=== PATIENT | female | born 1955 | race Caucasian/White ===

== ENCOUNTER 2017-05-20 07:29 | Day surgery (SDC) | payer OTHER ==
[~2017-05-20] VITALS: Ht 162.6 cm; Wt 133.7 kg
[~2017-05-20 07:29] MED LIST: ASPI-555 PO; CYCL10TA7 PO; GABA-531 PO; GLIP10TA9 PO; LEVO50TA11 PO; LOSA25TA21 PO; MAGN400C PO; METF10004 PO; MULT-264 PO; PANT40TA25 PO; PIOG30TA10 PO; SERT50TA12 PO; SIMV40TA5 PO; SODIUM CHLORIDE 0.9% 1000ML 1,000 ML IV ONE; VITA1CAP85 PO; VITAMIN C PO
[2017-05-20 09:10] VITALS: BP 144/75
[2017-05-20] MEDS ORDERED: HYDR-4068 PO (09:26)
[2017-05-20] MEDS ORDERED: PROPOFOL 10 MG/ML 20ML VIAL IV ONE ×2 (09:54→10:06)
[2017-05-20] MEDS ORDERED: FENTANYL CITRATE PF 50 MCG/1 ML 2ML VIAL ONE (10:00)
[2017-05-20 10:15] VITALS: BP 112/61
== END 2017-05-20 10:51 | disposition home or self-care (01) ==
LOC: ENDO 07:29 → DAH 07:29 → ENDO 10:51
PROVIDERS: ATTEND Internal Medicine Gastroenterology
DX: K57.30 Diverticulosis of large intestine without perforation or abscess without bleeding (principal); Z83.71 Family history of colonic polyps; Z68.43 Body mass index [BMI] 50.0-59.9, adult; Z79.899 Other long term (current) drug therapy; Z79.84 Long term (current) use of oral hypoglycemic drugs; Z79.4 Long term (current) use of insulin; E78.5 Hyperlipidemia, unspecified; M19.90 Unspecified osteoarthritis, unspecified site; K21.9 Gastro-esophageal reflux disease without esophagitis; G47.33 Obstructive sleep apnea (adult) (pediatric); J45.909 Unspecified asthma, uncomplicated; D64.9 Anemia, unspecified; E11.9 Type 2 diabetes mellitus without complications; E03.9 Hypothyroidism, unspecified; F32.9 Major depressive disorder, single episode, unspecified; Z90.49 Acquired absence of other specified parts of digestive tract; Z90.710 Acquired absence of both cervix and uterus; Z98.890 Other specified postprocedural states
CPT/HCPCS: 45378; 82948 ×2; A4606; J2704 ×2; J3010; J7030

== ENCOUNTER → 2018-06-02 | Outpatient (CLI) | payer OTHER ==
[~2018-06-02] MED LIST changes: +HYDR-4068 PO; -LOSA25TA21 PO; +LOSA25TA41 PO; +METF-446 PO; -METF10004 PO; -SODIUM CHLORIDE 0.9% 1000ML 1,000 ML IV ONE
== END | disposition home or self-care (01) ==
LOC: RAH 10:36
PROVIDERS: ATTEND Family Medicine
DX: Z12.31 Encounter for screening mammogram for malignant neoplasm of breast (principal)
CPT/HCPCS: 77067

== ENCOUNTER 2019-04-21 19:33 | Emergency (ER) | payer OTHER ==
[~2019-04-21 19:33] MED LIST changes: +SIMV-46 PO; -SIMV40TA5 PO
[2019-04-21] MEDS ORDERED: IPRATROPIUM/ALBUTEROL SULFATE 3 ML SOLUTION IH ONE ×3 (19:50)
[2019-04-21] MEDS ORDERED: DEXAMETHASONE SOD PHOSPHATE 10MG/ML 1ML VIAL ONE (20:04)
[2019-04-21 20:34] LABS: BASOPHILS % (AUTO) 0.7 % (0.0-5.0); EOSINOPHILS % (AUTO) 9.7 % (0.0-8.0); HEMATOCRIT 35.3 % (36-48); LYMPHOCYTES % (AUTO) 29.2 % (21.0-51.0); MEAN CORPUSCULAR HEMOGLOBIN 27.5 pg (27.0-33.0); MEAN CORPUSCULAR HGB CONC 31.4 g/dL (32.0-36.0); MEAN CORPUSCULAR VOLUME 87.6 fL (79-99); MONOCYTES % (AUTO) 6.2 % (3.0-13.0); NEUTROPHILS % (AUTO) 53.8 % (40.0-77.0); PLATELET COUNT (AUTO) 269 K/uL (130-400); RED BLOOD CELL COUNT(AUTO) 4.03 MIL/uL (4.00-5.50); RED CELL DISTRIBUTION WIDTH 14.8 % (11.0-15.5); WHITE BLOOD COUNT (AUTO) 10.5 K/uL (4.8-10.8)
[2019-04-21 20:40] LABS: CREATININE 0.9 mg/dL (0.5-1.5); POTASSIUM 3.7 mmol/L (3.5-5.1)
[2019-04-21 20:44] LABS: ALBUMIN 3.7 g/dL (3.5-5.0); BILIRUBIN,TOTAL 0.3 mg/dL (0.2-1.0); TOTAL PROTEIN, SERUM 7.7 g/dL (6.0-8.3)
[2019-04-21 20:54] LABS: B-TYPE NATRIURETIC PEPTIDE 24 pg/mL (0-100)
[2019-04-21 20:56] LABS: APPEARANCE,URINE Clear (CLEAR); BILIRUBIN,URINE Negative (NEGATIVE); COLOR,URINE Yellow (YELLOW); GLUCOSE, URINE (UA) Negative (NEGATIVE); KETONES,URINE Negative (NEGATIVE); LEUKOCYTE ESTERASE ,URINE Large (NEGATIVE); NITRATE,URINE Negative (NEGATIVE); OCCULT BLOOD,URINE Negative (NEGATIVE); PROTEIN,URINE Negative (NEGATIVE); UROBILINOGEN,URINE 0.2 mg/dL (0.2-1.0)
[2019-04-21 21:10] LABS: BACTERIA,URINE Rare /HPF (None Seen); RBC,URINE None Seen /HPF (0-1); SQUAMOUS EPITHELIAL CELL,UR Few /HPF (0-2)
== END 2019-04-21 22:00 | disposition home or self-care (01) ==
LOC: EDH 19:33
DX: B34.9 Viral infection, unspecified (principal); J45.909 Unspecified asthma, uncomplicated; E11.9 Type 2 diabetes mellitus without complications; Z88.5 Allergy status to narcotic agent; Z91.040 Latex allergy status; Z88.8 Allergy status to other drugs, medicaments and biological substances; Z88.1 Allergy status to other antibiotic agents
CPT/HCPCS: 36415; 71045; 80053; 81001; 83880; 84484; 85025; 93005; 94640 ×3; 96372; 99285; J1100

== ENCOUNTER 2019-09-25 22:25 | Inpatient (IN) | payer OTHER ==
[~2019-09-25] VITALS: Ht 162.6 cm; Wt 126.3 kg
[~2019-09-25 22:25] MED LIST changes: -ASPI-555 PO; +ASPI-556 PO
[2019-09-25] MEDS ORDERED: ACETAMINOPHEN 325 MG TAB ONE (22:48)
[2019-09-25] MEDS ORDERED: ONDANSETRON HCL 4 MG/2 ML VIAL ONE (22:48)
[2019-09-25] MEDS ORDERED: SODIUM CHLORIDE 0.9% 500ML 500 ML IV ONE (22:49)
[2019-09-25 23:23] LABS: BASOPHILS % (AUTO) 0.3 % (0.0-5.0); EOSINOPHILS % (AUTO) 0.1 % (0.0-8.0); HEMATOCRIT 31.3 % (36-48); LYMPHOCYTES % (AUTO) 7.3 % (21.0-51.0); MEAN CORPUSCULAR HEMOGLOBIN 26.8 pg (27.0-33.0); MEAN CORPUSCULAR HGB CONC 32.6 g/dL (32.0-36.0); MEAN CORPUSCULAR VOLUME 82.2 fL (79-99); MONOCYTES % (AUTO) 4.4 % (3.0-13.0); PLATELET COUNT (AUTO) 243 K/uL (130-400); RED BLOOD CELL COUNT(AUTO) 3.81 MIL/uL (4.00-5.50); RED CELL DISTRIBUTION WIDTH 14.6 % (11.0-15.5)
[2019-09-25 23:32] LABS: CARBON DIOXIDE 26 mmol/L (21-32); CHLORIDE 96 mmol/L (101-111); CREATININE 0.9 mg/dL (0.5-1.5); GLOMERULAR FILTR. RATE CALC 67 mL/min (>60); GLUCOSE,RANDOM 124 mg/dL (70-105); POTASSIUM 3.5 mmol/L (3.5-5.1); SODIUM SERUM 133 mmol/L (136-145); UREA NITROGEN, BLOOD 16 mg/dL (7-18)
[2019-09-25 23:37] LABS: INR 1.03 (0.85-1.15); PARTIAL THROMBOPLASTIN TIME 30.7 SEC (26.3-35.5); PROTHROMBIN TIME 11.1 SEC (9.6-11.6)
[2019-09-25 23:46] LABS: ALANINE AMINOTRANSFERASE 34 U/L (12-78); ALBUMIN 2.6 g/dL (3.5-5.0); ASPARTATE AMINOTRANSFERASE 57 U/L (10-37); BILIRUBIN,TOTAL 0.3 mg/dL (0.2-1.0); CREATINE KINASE, TOTAL 193 U/L (21-232); MYOGLOBIN 130 ng/mL (10-92); TOTAL PROTEIN, SERUM 7.2 g/dL (6.0-8.3); TROPONIN I < 0.04 ng/mL (0.00-0.06)
[2019-09-26] MEDS ORDERED: FUROSEMIDE 10 MG/ML 4ML VIAL ONE (00:33)
[2019-09-26] MEDS ORDERED: METHYLPREDNISOLONE SOD SUCC 40MG/ML 1ML ONE ×3 (00:55→17:01)
[2019-09-26] MEDS ORDERED: ENOXAPARIN SODIUM 40 MG/0.4 ML SYRINGE SQ ONE (00:56)
[2019-09-26] MEDS ORDERED: AZITHROMYCIN 500MG+NS 250ML 250 ML IV ONE (00:56)
[2019-09-26] MEDS ORDERED: FUROSEMIDE 10 MG/ML 4ML VIAL IVP SCH (01:00)
[2019-09-26] MEDS ORDERED: METHYLPREDNISOLONE SOD SUCC 40MG/ML 1ML IVP SCH (01:00)
[2019-09-26 01:30] LABS: RAPID GROUP A STREP NEGATIVE (NEGATIVE)
[2019-09-26 05:34] LABS: BASOPHILS % (AUTO) 0.2 % (0.0-5.0); HEMATOCRIT 32.5 % (36-48); LYMPHOCYTES % (AUTO) 8.9 % (21.0-51.0); MEAN CORPUSCULAR HEMOGLOBIN 26.7 pg (27.0-33.0); MEAN CORPUSCULAR HGB CONC 32.3 g/dL (32.0-36.0); MEAN CORPUSCULAR VOLUME 82.7 fL (79-99); MONOCYTES % (AUTO) 3.1 % (3.0-13.0); NEUTROPHILS % (AUTO) 86.8 % (40.0-77.0); PLATELET COUNT (AUTO) 257 K/uL (130-400); RED BLOOD CELL COUNT(AUTO) 3.93 MIL/uL (4.00-5.50); RED CELL DISTRIBUTION WIDTH 14.6 % (11.0-15.5); WHITE BLOOD COUNT (AUTO) 8.2 K/uL (4.8-10.8)
[2019-09-26 05:49] LABS: CREATININE 1.1 mg/dL (0.5-1.5); POTASSIUM 3.9 mmol/L (3.5-5.1)
[2019-09-26] MEDS: HUMALOG PO SS2 SQ SCH ×4 (07:30→21:00)
[2019-09-26 08:32] LABS: ABG BASE EXCESS -0.7 mmol/L (-2.0-3.0); ABG HCO3 23.2 mmol/L (21.0-28.0); ABG OXYGEN SATURATION 90.2 % (95.0-99.0); ABG PCO2 36 mmHg (32-45)
[2019-09-26] MEDS ORDERED: INSULIN HUMULIN R 100 UNIT/ML 3ML ONE (09:42)
[2019-09-26] MEDS: FUROSEMIDE 10 MG/ML 2ML VIAL IV SCH (10:15)
[2019-09-26] MEDS: CYCLOBENZAPRINE HCL 10 MG TABLET PO SCH (10:20)
[2019-09-26] MEDS ORDERED: ERGOCALCIFEROL (VITAMIN D2) 50,000 UNIT CAPSULE PO ONE (17:30)
[2019-09-26 17:49] LABS: APPEARANCE,URINE Clear (CLEAR); BILIRUBIN,URINE Negative (NEGATIVE); COLOR,URINE Yellow (YELLOW); GLUCOSE, URINE (UA) >=1000 mg/dL (NEGATIVE); KETONES,URINE Negative (NEGATIVE); LEUKOCYTE ESTERASE ,URINE Moderate (NEGATIVE); NITRATE,URINE Negative (NEGATIVE); OCCULT BLOOD,URINE Negative (NEGATIVE); PROTEIN,URINE Trace mg/dL (NEGATIVE)
[2019-09-26 18:07] LABS: BACTERIA,URINE Moderate /HPF (None Seen); MUCUS,URINE Few LPF (None Seen); SQUAMOUS EPITHELIAL CELL,UR Few /HPF (0-2)
[2019-09-26] MEDS ORDERED: HYDROCODONE/ACETAMINOPHEN 5/325 MG TAB ONE (19:30)
[2019-09-26] MEDS ORDERED: AZITHROMYCIN 500MG+NS 250ML 250 ML IV SCH (21:00)
[2019-09-26] MEDS: ENOXAPARIN SODIUM 1 MG/KG SQ SCH (21:00)
[2019-09-26] MEDS: SIMVASTATIN 20 MG TABLET PO SCH (21:00)
[2019-09-26] MEDS ORDERED: ENOXAPARIN SODIUM 40 MG/0.4 ML SYRINGE SQ SCH (21:00)
[2019-09-26] MEDS: INSULIN GLARGINE 100 UNITS/ML 10 ML VIAL SQ SCH (21:00)
[2019-09-27] MEDS ORDERED: SIMVASTATIN 10 MG TABLET ONE ×2 (00:12→22:59)
[2019-09-27] MEDS ORDERED: ENOXAPARIN SODIUM 100 MG/1 ML SQ ONE ×2 (00:12→22:59)
[2019-09-27] MEDS ORDERED: MAGNESIUM OXIDE 400 MG TABLET PO ONE ×4 (00:12→23:00)
[2019-09-27] MEDS ORDERED: METHYLPREDNISOLONE SOD SUCC 40MG/ML 1ML ONE (00:12)
[2019-09-27] MEDS ORDERED: FUROSEMIDE 10 MG/ML 4ML VIAL ONE ×2 (00:13→16:36)
[2019-09-27] MEDS ORDERED: AZITHROMYCIN 500MG+NS 250ML 250 ML IV ONE (00:13)
[2019-09-27] MEDS ORDERED: CYCLOBENZAPRINE HCL 10 MG TABLET ONE ×3 (00:13→23:01)
[2019-09-27] MEDS ORDERED: GABAPENTIN 300 MG CAPSULE ONE ×4 (00:14→23:01)
[2019-09-27 04:09] LABS: ABG BASE EXCESS -1.7 mmol/L (-2.0-3.0); ABG HCO3 22.3 mmol/L (21.0-28.0); ABG OXYGEN SATURATION 92.7 % (95.0-99.0); ABG PCO2 36 mmHg (32-45)
[2019-09-27 05:52] LABS: BASOPHILS % (AUTO) 0.1 % (0.0-5.0); HEMATOCRIT 35.8 % (36-48); LYMPHOCYTES % (AUTO) 5.8 % (21.0-51.0); MEAN CORPUSCULAR HEMOGLOBIN 26.8 pg (27.0-33.0); MEAN CORPUSCULAR HGB CONC 32.1 g/dL (32.0-36.0); MEAN CORPUSCULAR VOLUME 83.4 fL (79-99); MONOCYTES % (AUTO) 2.8 % (3.0-13.0); NEUTROPHILS % (AUTO) 90.6 % (40.0-77.0); PLATELET COUNT (AUTO) 349 K/uL (130-400); RED BLOOD CELL COUNT(AUTO) 4.29 MIL/uL (4.00-5.50); RED CELL DISTRIBUTION WIDTH 14.5 % (11.0-15.5); WHITE BLOOD COUNT (AUTO) 13.3 K/uL (4.8-10.8)
[2019-09-27 06:14] LABS: HEMOGLOBIN A1C 6.5 % (4.0-6.0)
[2019-09-27] MEDS: HUMALOG PO SS2 SQ SCH ×4 (07:30→21:00)
[2019-09-27 08:50] LABS: CREATININE 1.2 mg/dL (0.5-1.5); MAGNESIUM 2.1 mg/dL (1.80-2.40); PHOSPHORUS 3.7 mg/dL (2.5-4.9); POTASSIUM 3.8 mmol/L (3.5-5.1)
[2019-09-27 08:59] LABS: CRP QUANTITATIVE 164.4 mg/L (0.00-9.0)
[2019-09-27 09:00] VITALS: BP 140/36
[2019-09-27] MEDS: ZINC SULFATE 220 CAPSULE PO SCH (09:00)
[2019-09-27] MEDS: ENOXAPARIN SODIUM 1 MG/KG SQ SCH ×2 (09:00→21:00)
[2019-09-27] MEDS: SERTRALINE HCL 50 MG TABLET PO SCH (09:00)
[2019-09-27] MEDS: ASPIRIN 81 MG EC TAB PO SCH (09:00)
[2019-09-27] MEDS: LEVOTHYROXINE 50 MCG TABLET PO SCH (09:00)
[2019-09-27] MEDS: MAGNESIUM OXIDE 400 MG TABLET PO SCH ×3 (09:00→14:00)
[2019-09-27] MEDS: ASCORBIC ACID 500 MG TAB PO SCH (09:00)
[2019-09-27] MEDS: GABAPENTIN 300 MG CAPSULE PO SCH ×3 (09:00→14:00)
[2019-09-27] MEDS: LOSARTAN 50 MG TABLET PO SCH (09:00)
[2019-09-27] MEDS ORDERED: ASPIRIN 81MG TAB.CHEW ONE (09:32)
[2019-09-27] MEDS ORDERED: DEXAMETHASONE SOD PHOSPHATE 10MG/ML 1ML VIAL ONE (09:33)
[2019-09-27] MEDS ORDERED: ASCORBIC ACID 500 MG TAB ONE (09:33)
[2019-09-27] MEDS ORDERED: SERTRALINE HCL 50 MG TABLET ONE (09:34)
[2019-09-27] MEDS ORDERED: FUROSEMIDE 10 MG/ML 2ML VIAL ONE (09:34)
[2019-09-27] MEDS ORDERED: PANTOPRAZOLE SODIUM 40 MG TABLET.DR ONE (09:34)
[2019-09-27] MEDS ORDERED: ZINC SULFATE 220 CAPSULE ONE (09:34)
[2019-09-27] MEDS ORDERED: LOSARTAN 50 MG TABLET ONE (09:35)
[2019-09-27] MEDS: FUROSEMIDE 10 MG/ML 2ML VIAL IV SCH ×3 (10:00→10:20)
[2019-09-27] MEDS: CYCLOBENZAPRINE HCL 10 MG TABLET PO SCH ×2 (10:00→21:00)
[2019-09-27] MEDS: MULTIVITAMIN TABLET PO SCH (10:20)
[2019-09-27] MEDS: PANTOPRAZOLE SODIUM 40 MG TABLET.DR PO SCH (10:20)
[2019-09-27] MEDS: DEXAMETHASONE SOD PHOSPHATE 4 MG/ML 1ML VIAL IVP SCH (10:20)
[2019-09-27 12:30] VITALS: BP 130/73
[2019-09-27] MEDS ORDERED: ENOXAPARIN SODIUM 40 MG/0.4 ML SYRINGE SQ ONE ×2 (13:08→23:00)
[2019-09-27] MEDS ORDERED: TETANUS/DIPHTHERIA TOXOID [ADULT] 0.5 ML VIAL IM ONE (15:36)
[2019-09-27 16:09] VITALS: BP 127/73
[2019-09-27] MEDS ORDERED: CYANOCOBALAMIN (VITAMIN B-12) 1,000 MCG TABLET ONE (16:36)
--- NOTE | 2019-09-27 16:38 | NUR ---
[id number] RECEIVED TELEPHONE CONSENT FROM SPOUSE AGATA CORONADO AT [phone]. I FAXED LETTER TO [phone].
[2019-09-27] MEDS: SIMVASTATIN 20 MG TABLET PO SCH (21:00)
[2019-09-27] MEDS: INSULIN GLARGINE 100 UNITS/ML 10 ML VIAL SQ SCH (21:00)
[2019-09-28] MEDS ORDERED: FUROSEMIDE 10 MG/ML 4ML VIAL ONE ×2 (01:08→09:28)
[2019-09-28 04:01] LABS: ABG BASE EXCESS 3.1 mmol/L (-2.0-3.0); ABG OXYGEN SATURATION 91.1 % (95.0-99.0); ABG PCO2 39 mmHg (32-45)
[2019-09-28 06:09] LABS: BASOPHILS % (AUTO) 0.1 % (0.0-5.0); EOSINOPHILS % (AUTO) 0.1 % (0.0-8.0); HEMATOCRIT 31.9 % (36-48); MEAN CORPUSCULAR HEMOGLOBIN 26.7 pg (27.0-33.0); MEAN CORPUSCULAR HGB CONC 32.6 g/dL (32.0-36.0); MEAN CORPUSCULAR VOLUME 81.8 fL (79-99); MONOCYTES % (AUTO) 3.9 % (3.0-13.0); NEUTROPHILS % (AUTO) 87.5 % (40.0-77.0); NUCLEATED RED BLOOD CELLS 0.1 % (0.0-0.19); PLATELET COUNT (AUTO) 362 K/uL (130-400); RED CELL DISTRIBUTION WIDTH 14.6 % (11.0-15.5); WHITE BLOOD COUNT (AUTO) 13.6 K/uL (4.8-10.8)
[2019-09-28 06:49] LABS: ALBUMIN 2.8 g/dL (3.5-5.0); BILIRUBIN,DIRECT 0.1 mg/dL (0.0-0.3); BILIRUBIN,TOTAL 0.3 mg/dL (0.2-1.0); CREATININE 1.1 mg/dL (0.5-1.5); CRP QUANTITATIVE 78.1 mg/L (0.00-9.0); PHOSPHORUS 2.8 mg/dL (2.5-4.9); POTASSIUM 3.4 mmol/L (3.5-5.1); TOTAL PROTEIN, SERUM 7.4 g/dL (6.0-8.3)
[2019-09-28] MEDS: HUMALOG PO SS2 SQ SCH ×4 (07:30→21:00)
[2019-09-28 08:09] VITALS: BP 120/68
--- NOTE | 2019-09-28 08:10 | NUR ---
SOB ON EXCERTION, ON BIPAP, QUICKLY DESATURATES WHEN BIPAP REMOVED, WILL CONTINUE TO ASSESS
[2019-09-28] MEDS: FUROSEMIDE 10 MG/ML 2ML VIAL IV SCH ×3 (08:15→16:15)
[2019-09-28] MEDS: GABAPENTIN 300 MG CAPSULE PO SCH ×3 (09:00→21:00)
[2019-09-28] MEDS: CYCLOBENZAPRINE HCL 10 MG TABLET PO SCH ×4 (09:00→21:00)
[2019-09-28] MEDS: ENOXAPARIN SODIUM 1 MG/KG SQ SCH ×2 (09:00→21:00)
[2019-09-28] MEDS: MAGNESIUM OXIDE 400 MG TABLET PO SCH ×4 (09:00→21:00)
[2019-09-28] MEDS ORDERED: ENOXAPARIN SODIUM 60 MG/0.6 ML SQ ONE (09:26)
[2019-09-28] MEDS ORDERED: ASCORBIC ACID 500 MG TAB ONE (09:27)
[2019-09-28] MEDS ORDERED: ASPIRIN 81MG TAB.CHEW ONE (09:27)
[2019-09-28] MEDS ORDERED: DEXAMETHASONE SOD PHOSPHATE 4 MG/ML 5ML VIAL ONE (09:28)
[2019-09-28] MEDS ORDERED: MAGNESIUM OXIDE 400 MG TABLET PO ONE ×3 (09:28→21:16)
[2019-09-28] MEDS ORDERED: ZINC SULFATE 220 CAPSULE ONE (09:29)
[2019-09-28] MEDS ORDERED: PANTOPRAZOLE SODIUM 40 MG TABLET.DR ONE (09:29)
[2019-09-28] MEDS ORDERED: CYCLOBENZAPRINE HCL 10 MG TABLET ONE ×3 (09:30→21:17)
[2019-09-28] MEDS ORDERED: LOSARTAN 50 MG TABLET ONE (09:30)
[2019-09-28] MEDS ORDERED: SERTRALINE HCL 50 MG TABLET ONE (09:30)
[2019-09-28] MEDS ORDERED: GABAPENTIN 300 MG CAPSULE ONE ×3 (09:31→21:17)
[2019-09-28] MEDS: DEXAMETHASONE SOD PHOSPHATE 4 MG/ML 1ML VIAL IVP SCH (10:27)
[2019-09-28] MEDS: LEVOTHYROXINE 50 MCG TABLET PO SCH (10:28)
[2019-09-28] MEDS: ASCORBIC ACID 500 MG TAB PO SCH (10:28)
[2019-09-28] MEDS: MULTIVITAMIN TABLET PO SCH (10:28)
[2019-09-28] MEDS: LOSARTAN 50 MG TABLET PO SCH (10:28)
[2019-09-28] MEDS: ASPIRIN 81 MG EC TAB PO SCH (10:28)
[2019-09-28] MEDS: SERTRALINE HCL 50 MG TABLET PO SCH (10:28)
[2019-09-28] MEDS: PANTOPRAZOLE SODIUM 40 MG TABLET.DR PO SCH (10:28)
[2019-09-28] MEDS: ZINC SULFATE 220 CAPSULE PO SCH (10:28)
[2019-09-28 12:05] VITALS: BP 118/70
--- NOTE | 2019-09-28 12:06 | NUR ---
FIO2 OF 60 AND PT OS SAT IS 87%. CALLED RESPIRATORY AND ADJUSTED BIPAP. FIO2 AT 80% AND SATURATION IMPROVED. PT STATES SHE IS HAVING MORE DIFFICULTY BREATHING TODAY. PAGED BENCHMARK C/O BURNING IN HER CHEST. WILL CONTINUE TO ASSES AND UPDATE MD.
--- NOTE | 2019-09-28 12:33 | NUR ---
CALL TO SPOUSE FOR DC PLANNING STATES PATIENT DOES NOT HAVE HER PHONE- INSTRUCTED HOW TO MAKE SURE ITS DROPPED OFF SAFELY, IDENTIFIED, WITH AUTOMOTIVE BRAKE ADJUSTER. SPOUSE STATES PATIENT IS INDEPENDENT & ACTIVE- HAS A BACK IMPLANT FOR PAIN BUT REQUIRES NO DME INC NO S/CHAIR, HOME HAS NO STAIRS, PT DRIVES, FOLLOWS WITH DR. TREVINO Q 3 MOS DCP HOME , SPOUSE TO TRANSPORT. CM TO FOLLOW . PT STILL WITH ++ OXYGEN REQUIREMENTS Addendum: 09/28/19 at 1238 by KEYON LANDA RN CM Amended: Links added.
[2019-09-28 13:40] VITALS: BP 129/67
[2019-09-28] MEDS ORDERED: FUROSEMIDE 10 MG/ML 2ML VIAL ONE ×2 (15:39→15:46)
[2019-09-28 16:04] VITALS: BP 116/71
[2019-09-28] MEDS: INSULIN GLARGINE 100 UNITS/ML 10 ML VIAL SQ SCH (21:00)
[2019-09-28] MEDS: SIMVASTATIN 20 MG TABLET PO SCH (21:00)
[2019-09-28] MEDS ORDERED: SIMVASTATIN 10 MG TABLET ONE (21:16)
[2019-09-28] MEDS ORDERED: ENOXAPARIN SODIUM 100 MG/1 ML SQ ONE (21:46)
[2019-09-29] MEDS: FUROSEMIDE 10 MG/ML 2ML VIAL IV SCH ×3 (00:15→17:57)
[2019-09-29 00:30] VITALS: BP 132/96
[2019-09-29 04:03] LABS: ABG BASE EXCESS 4.9 mmol/L (-2.0-3.0); ABG HCO3 28.8 mmol/L (21.0-28.0); ABG PCO2 40 mmHg (32-45)
[2019-09-29 04:20] VITALS: BP 139/64
[2019-09-29] MEDS: HUMALOG PO SS2 SQ SCH ×4 (06:20→21:00)
[2019-09-29 06:30] LABS: BASOPHILS % (AUTO) 0.3 % (0.0-5.0); EOSINOPHILS % (AUTO) 0.2 % (0.0-8.0); HEMATOCRIT 33.3 % (36-48); MEAN CORPUSCULAR HEMOGLOBIN 26.2 pg (27.0-33.0); MEAN CORPUSCULAR HGB CONC 31.5 g/dL (32.0-36.0); MONOCYTES % (AUTO) 2.7 % (3.0-13.0); NEUTROPHILS % (AUTO) 85.4 % (40.0-77.0); NUCLEATED RED BLOOD CELLS 0.3 % (0.0-0.19); PLATELET COUNT (AUTO) 385 K/uL (130-400); RED BLOOD CELL COUNT(AUTO) 4.01 MIL/uL (4.00-5.50); RED CELL DISTRIBUTION WIDTH 14.4 % (11.0-15.5); WHITE BLOOD COUNT (AUTO) 11.7 K/uL (4.8-10.8)
[2019-09-29 06:56] LABS: ALBUMIN 2.7 g/dL (3.5-5.0); BILIRUBIN,TOTAL 0.6 mg/dL (0.2-1.0); CREATININE 0.9 mg/dL (0.5-1.5); PHOSPHORUS 3.1 mg/dL (2.5-4.9); POTASSIUM 3.5 mmol/L (3.5-5.1); TOTAL PROTEIN, SERUM 7.6 g/dL (6.0-8.3)
[2019-09-29 08:00] VITALS: BP 134/63
[2019-09-29] MEDS: DEXAMETHASONE SOD PHOSPHATE 4 MG/ML 1ML VIAL IVP SCH (08:31)
[2019-09-29] MEDS: SERTRALINE HCL 50 MG TABLET PO SCH (08:32)
[2019-09-29] MEDS: CYCLOBENZAPRINE HCL 10 MG TABLET PO SCH ×3 (08:32→22:00)
[2019-09-29] MEDS: ASPIRIN 81 MG EC TAB PO SCH (08:33)
[2019-09-29] MEDS: ASCORBIC ACID 500 MG TAB PO SCH (08:33)
[2019-09-29] MEDS: MAGNESIUM OXIDE 400 MG TABLET PO SCH ×3 (08:33→22:00)
[2019-09-29] MEDS: GABAPENTIN 300 MG CAPSULE PO SCH ×3 (08:34→22:00)
[2019-09-29] MEDS: MULTIVITAMIN TABLET PO SCH (08:34)
[2019-09-29] MEDS: PANTOPRAZOLE SODIUM 40 MG TABLET.DR PO SCH (08:34)
[2019-09-29] MEDS: LEVOTHYROXINE 50 MCG TABLET PO SCH (08:34)
[2019-09-29] MEDS: ZINC SULFATE 220 CAPSULE PO SCH (08:35)
[2019-09-29] MEDS: LOSARTAN 50 MG TABLET PO SCH (08:35)
[2019-09-29] MEDS: ENOXAPARIN SODIUM 1 MG/KG SQ SCH ×2 (09:00→21:00)
[2019-09-29] MEDS: INSULIN HUMULIN R 100 UNIT/ML 3ML SQ SCH ×3 (11:41→21:00)
[2019-09-29 12:00] VITALS: BP 116/75
[2019-09-29] MEDS ORDERED: REMDESIVIR (INVESTIGATIONAL) 200 MG in SODIUM CHLORIDE 0.9% 250 ML IV ONE ×2 (12:15→12:30)
--- NOTE | 2019-09-29 13:00 | NUR ---
PLASMA TRANSFUSION NOW COMPLETE, NO ADVERSE REACTION NOTED
[2019-09-29] MEDS: PHARMACY COMMUNICATION MISC SCH ×2 (13:45→21:38)
[2019-09-29 16:00] VITALS: BP 118/81
[2019-09-29 20:24] VITALS: BP 127/64
[2019-09-29] MEDS: INSULIN GLARGINE 100 UNITS/ML 10 ML VIAL SQ SCH (21:00)
[2019-09-29] MEDS: FAMOTIDINE 20MG TAB 20 MG TAB PO SCH (22:05)
[2019-09-29] MEDS: SIMVASTATIN 20 MG TABLET PO SCH (22:06)
[2019-09-30 00:24] VITALS: BP 135/73
[2019-09-30] MEDS: PHARMACY COMMUNICATION MISC SCH ×3 (02:03→20:04)
[2019-09-30] MEDS: FUROSEMIDE 10 MG/ML 2ML VIAL IV SCH ×3 (02:11→16:15)
[2019-09-30 04:24] VITALS: BP 139/73
[2019-09-30] MEDS: INSULIN HUMULIN R 100 UNIT/ML 3ML SQ SCH ×4 (06:17→22:25)
[2019-09-30] MEDS: HUMALOG PO SS2 SQ SCH ×4 (06:17→22:24)
[2019-09-30 07:01] LABS: ABG BASE EXCESS 7.4 mmol/L (-2.0-3.0); ABG HCO3 30.4 mmol/L (21.0-28.0); ABG OXYGEN SATURATION 76.5 % (95.0-99.0); ABG PCO2 37 mmHg (32-45)
[2019-09-30] MEDS ORDERED: LORAZEPAM 2 MG/ML 1 ML VIAL IVP SCH (07:30)
[2019-09-30] MEDS: LORAZEPAM 2 MG/ML 1 ML VIAL ONE ×3 (07:31→07:49)
--- NOTE | 2019-09-30 07:49 | NUR ---
0645 - andre called for pt; O2 sats with BiPAP were in the mid 70s and sustaining; RT present and changed out pts Bipap machine; Dr. Billings called and informed of pts condition; anti-anxiety medication ordered (Ativan 1mg IV); pt received 0.25mg Ativan and O2 sats eventually increased to 90%; pt is currently resting in bed with Bipap (rate 16 and O2 100%); pts O2 sats = 94%; no distress noted. Nadiya, RN
--- NOTE | 2019-09-30 09:00 | NUR ---
HAVING QUITE A BIT OF COUGHING, SATS DROPPING TO 70S, KEEPS TAKING OFF MASK, STATES FEELS LIKE SHE IS SUFFOCATING.
[2019-09-30] MEDS: ASCORBIC ACID 500 MG TAB PO SCH (10:33)
[2019-09-30] MEDS: DEXAMETHASONE SOD PHOSPHATE 4 MG/ML 1ML VIAL IVP SCH (10:33)
[2019-09-30] MEDS: FAMOTIDINE 20MG TAB 20 MG TAB PO SCH ×2 (10:34→21:34)
[2019-09-30] MEDS: ASPIRIN 81 MG EC TAB PO SCH (10:34)
[2019-09-30] MEDS: SERTRALINE HCL 50 MG TABLET PO SCH (10:34)
[2019-09-30] MEDS: MULTIVITAMIN TABLET PO SCH (10:34)
[2019-09-30] MEDS: LOSARTAN 50 MG TABLET PO SCH (10:35)
[2019-09-30] MEDS: ZINC SULFATE 220 CAPSULE PO SCH (10:35)
[2019-09-30] MEDS: LEVOTHYROXINE 50 MCG TABLET PO SCH (10:35)
[2019-09-30] MEDS: MAGNESIUM OXIDE 400 MG TABLET PO SCH ×3 (10:45→21:33)
[2019-09-30] MEDS: GABAPENTIN 300 MG CAPSULE PO SCH ×3 (10:46→21:34)
[2019-09-30] MEDS: CYCLOBENZAPRINE HCL 10 MG TABLET PO SCH ×3 (10:47→21:33)
[2019-09-30 12:00] VITALS: BP 131/79
[2019-09-30] MEDS ORDERED: REMDESIVIR (INVESTIGATIONAL) 100 MG in SODIUM CHLORIDE 0.9% 250 ML IV SCH (12:15)
[2019-09-30] MEDS ORDERED: CEFTRIAXONE SODIUM 1 GM IV SCH (13:00)
[2019-09-30] MEDS: ZOSYN 3.375GM+NS 50ML 50 ML IV SCH ×2 (14:03→21:00)
[2019-09-30] MEDS ORDERED: PHARMACY COMMUNICATION MISC STA (14:44)
[2019-09-30] MEDS ORDERED: FUROSEMIDE 10 MG/ML 2ML VIAL IV STA (15:02)
[2019-09-30] MEDS: ENOXAPARIN SODIUM 120 MG/0.8ML SQ SCH (15:09)
[2019-09-30] MEDS: LOPERAMIDE 1 MG/7.5 ML UDCUP PO SCH (15:10)
--- NOTE | 2019-09-30 15:51 | NUR ---
new iv start, 20g to rt. hand.
[2019-09-30 16:00] VITALS: BP 132/82
[2019-09-30] MEDS ORDERED: REMDESIVIR (EUA) 520 100 MG VIAL IV ONE (16:00)
[2019-09-30] MEDS ORDERED: REMDESIVIR 200 MG in SODIUM CHLORIDE 0.9% 250 ML IV ONE (16:00)
--- NOTE | 2019-09-30 18:00 | NUR ---
SEEMS MORE SETTLED NOW. RESTING AND SATS BETWEEN 90TO 92
[2019-09-30 19:05] VITALS: BP 121/70
[2019-09-30] MEDS ORDERED: LIDOCAINE HCL-MPF 1% 2ML VIAL IV PRN (19:30)
[2019-09-30] MEDS ORDERED: POTASSIUM CHLORIDE 10% ELIXIR 20 MEQ/15 ML UDCUP PO PRN (19:30)
[2019-09-30] MEDS ORDERED: POTASSIUM CHLORIDE 20MEQ/100ML 100 ML IV PRN (19:30)
[2019-09-30] MEDS: SIMVASTATIN 20 MG TABLET PO SCH (21:34)
[2019-09-30] MEDS: INSULIN GLARGINE 100 UNITS/ML 10 ML VIAL SQ SCH (22:26)
[2019-09-30] MEDS: POTASSIUM CHLORIDE 20 MEQ ERTAB PO PRN (22:29)
[2019-09-30 23:33] VITALS: BP 115/60
[2019-10-01] MEDS: FUROSEMIDE 10 MG/ML 2ML VIAL IV SCH ×3 (01:06→17:06)
[2019-10-01] MEDS: PHARMACY COMMUNICATION MISC SCH ×4 (01:07→20:51)
[2019-10-01] MEDS: ENOXAPARIN SODIUM 120 MG/0.8ML SQ SCH ×2 (02:45→15:05)
[2019-10-01 03:10] VITALS: BP 105/59
[2019-10-01] MEDS: POTASSIUM CHLORIDE 20 MEQ ERTAB PO PRN ×2 (03:15→17:06)
[2019-10-01] MEDS: ZOSYN 3.375GM+NS 50ML 50 ML IV SCH ×3 (05:00→22:03)
[2019-10-01 05:02] LABS: CREATININE 1.1 mg/dL (0.5-1.5); POTASSIUM 3.3 mmol/L (3.5-5.1)
[2019-10-01] MEDS: INSULIN HUMULIN R 100 UNIT/ML 3ML SQ SCH ×4 (06:16→22:27)
[2019-10-01] MEDS: HUMALOG PO SS2 SQ SCH ×4 (06:42→22:25)
[2019-10-01 08:00] VITALS: BP 130/74
[2019-10-01] MEDS: LEVOTHYROXINE 50 MCG TABLET PO SCH (08:36)
[2019-10-01] MEDS: SERTRALINE HCL 50 MG TABLET PO SCH (08:36)
[2019-10-01] MEDS: DEXAMETHASONE SOD PHOSPHATE 4 MG/ML 1ML VIAL IVP SCH (08:36)
[2019-10-01] MEDS: MAGNESIUM OXIDE 400 MG TABLET PO SCH ×3 (08:36→22:03)
[2019-10-01] MEDS: ASCORBIC ACID 500 MG TAB PO SCH (08:36)
[2019-10-01] MEDS: CYCLOBENZAPRINE HCL 10 MG TABLET PO SCH ×3 (08:36→22:03)
[2019-10-01] MEDS: FAMOTIDINE 20MG TAB 20 MG TAB PO SCH ×2 (08:36→22:03)
[2019-10-01] MEDS: LOSARTAN 50 MG TABLET PO SCH (08:37)
[2019-10-01] MEDS: ASPIRIN 81 MG EC TAB PO SCH (08:37)
[2019-10-01] MEDS: ZINC SULFATE 220 CAPSULE PO SCH (08:37)
[2019-10-01] MEDS: MULTIVITAMIN TABLET PO SCH (08:37)
[2019-10-01] MEDS: GABAPENTIN 300 MG CAPSULE PO SCH ×3 (08:37→22:03)
[2019-10-01 11:00] VITALS: BP 135/73
[2019-10-01 11:10] LABS: ABG BASE EXCESS 5.7 mmol/L (-2.0-3.0); ABG OXYGEN SATURATION 88.8 % (95.0-99.0); ABG PCO2 38 mmHg (32-45)
[2019-10-01] MEDS ORDERED: COMPOUND IV REFRIGERATED 1 EACH IVSOLN MISC PRN (12:15)
[2019-10-01] MEDS: REMDESIVIR (EUA) 520 100 MG in SODIUM CHLORIDE 0.9% 250 ML IV SCH (15:07)
[2019-10-01] MEDS: LOPERAMIDE 1 MG/7.5 ML UDCUP PO SCH (15:09)
[2019-10-01] MEDS ORDERED: REMDESIVIR (EUA) 520 100 MG VIAL IV ONE (16:00)
[2019-10-01 17:22] VITALS: BP 121/67
[2019-10-01 21:44] VITALS: BP 126/76
[2019-10-01] MEDS: SIMVASTATIN 20 MG TABLET PO SCH (22:04)
[2019-10-01] MEDS: INSULIN GLARGINE 100 UNITS/ML 10 ML VIAL SQ SCH (22:28)
[2019-10-02 00:02] VITALS: BP 122/69
[2019-10-02] MEDS: FUROSEMIDE 10 MG/ML 2ML VIAL IV SCH ×4 (02:09→23:28)
[2019-10-02] MEDS: ENOXAPARIN SODIUM 120 MG/0.8ML SQ SCH ×2 (02:09→15:47)
[2019-10-02] MEDS: ZOSYN 3.375GM+NS 50ML 50 ML IV SCH ×3 (05:53→21:42)
[2019-10-02] MEDS: INSULIN HUMULIN R 100 UNIT/ML 3ML SQ SCH ×4 (05:54→21:00)
[2019-10-02 05:58] VITALS: BP 131/82
[2019-10-02 06:38] LABS: CREATININE 1.1 mg/dL (0.5-1.5); POTASSIUM 3.3 mmol/L (3.5-5.1)
[2019-10-02] MEDS: HUMALOG PO SS2 SQ SCH ×4 (06:38→21:00)
[2019-10-02 08:00] VITALS: BP 131/77
[2019-10-02] MEDS: ASPIRIN 81 MG EC TAB PO SCH (10:07)
[2019-10-02] MEDS: LEVOTHYROXINE 50 MCG TABLET PO SCH (10:07)
[2019-10-02] MEDS: MULTIVITAMIN TABLET PO SCH (10:07)
[2019-10-02] MEDS: SERTRALINE HCL 50 MG TABLET PO SCH (10:07)
[2019-10-02] MEDS: MAGNESIUM OXIDE 400 MG TABLET PO SCH ×3 (10:08→21:38)
[2019-10-02] MEDS: CYCLOBENZAPRINE HCL 10 MG TABLET PO SCH ×3 (10:08→21:37)
[2019-10-02] MEDS: FAMOTIDINE 20MG TAB 20 MG TAB PO SCH ×2 (10:08→21:38)
[2019-10-02] MEDS: LOSARTAN 50 MG TABLET PO SCH (10:08)
[2019-10-02] MEDS: ASCORBIC ACID 500 MG TAB PO SCH (10:08)
[2019-10-02] MEDS: ZINC SULFATE 220 CAPSULE PO SCH (10:09)
[2019-10-02] MEDS: GABAPENTIN 300 MG CAPSULE PO SCH ×3 (10:10→21:38)
[2019-10-02] MEDS: DEXAMETHASONE 4 MG TAB PO SCH (10:32)
[2019-10-02 12:41] VITALS: BP 140/52
[2019-10-02] MEDS: PHARMACY COMMUNICATION MISC SCH ×2 (13:30→21:30)
[2019-10-02] MEDS: LOPERAMIDE 1 MG/7.5 ML UDCUP PO SCH (14:30)
[2019-10-02] MEDS ORDERED: REMDESIVIR (EUA) 520 100 MG VIAL IV ONE (15:00)
[2019-10-02] MEDS: POTASSIUM CHLORIDE 20 MEQ ERTAB PO PRN ×3 (15:54→23:29)
[2019-10-02 16:00] VITALS: BP 128/71
[2019-10-02 16:26] LABS: BILIRUBIN,DIRECT 0.1 mg/dL (0.0-0.3); BILIRUBIN,TOTAL 0.6 mg/dL (0.2-1.0); TOTAL PROTEIN, SERUM 7.9 g/dL (6.0-8.3)
[2019-10-02] MEDS: REMDESIVIR (EUA) 520 100 MG in SODIUM CHLORIDE 0.9% 250 ML IV SCH (18:35)
[2019-10-02 20:00] VITALS: BP 122/66
[2019-10-02] MEDS: INSULIN GLARGINE 100 UNITS/ML 10 ML VIAL SQ SCH (21:00)
[2019-10-02] MEDS: SIMVASTATIN 20 MG TABLET PO SCH (21:38)
[2019-10-03 00:04] VITALS: BP 110/64
[2019-10-03] MEDS: ENOXAPARIN SODIUM 120 MG/0.8ML SQ SCH ×2 (03:09→17:05)
[2019-10-03 04:17] VITALS: BP 129/77
[2019-10-03] MEDS: PHARMACY COMMUNICATION MISC SCH ×3 (05:30→21:30)
[2019-10-03] MEDS: HUMALOG PO SS2 SQ SCH ×4 (06:22→21:00)
[2019-10-03] MEDS: INSULIN HUMULIN R 100 UNIT/ML 3ML SQ SCH ×4 (06:22→21:00)
[2019-10-03 06:33] LABS: ALBUMIN 2.2 g/dL (3.5-5.0); BILIRUBIN,DIRECT 0.2 mg/dL (0.0-0.3); BILIRUBIN,TOTAL 0.5 mg/dL (0.2-1.0); TOTAL PROTEIN, SERUM 8.2 g/dL (6.0-8.3)
[2019-10-03] MEDS: ZOSYN 3.375GM+NS 50ML 50 ML IV SCH ×3 (06:42→22:18)
[2019-10-03 08:00] VITALS: BP 123/80
[2019-10-03] MEDS: SERTRALINE HCL 50 MG TABLET PO SCH (09:13)
[2019-10-03] MEDS: MAGNESIUM OXIDE 400 MG TABLET PO SCH ×4 (09:13→22:18)
[2019-10-03] MEDS: ZINC SULFATE 220 CAPSULE PO SCH (09:13)
[2019-10-03] MEDS: FAMOTIDINE 20MG TAB 20 MG TAB PO SCH ×3 (09:13→22:18)
[2019-10-03] MEDS: MULTIVITAMIN TABLET PO SCH (09:14)
[2019-10-03] MEDS: CYCLOBENZAPRINE HCL 10 MG TABLET PO SCH ×4 (09:14→22:18)
[2019-10-03] MEDS: LEVOTHYROXINE 50 MCG TABLET PO SCH (09:14)
[2019-10-03] MEDS: ASCORBIC ACID 500 MG TAB PO SCH (09:14)
[2019-10-03] MEDS: GABAPENTIN 300 MG CAPSULE PO SCH ×4 (09:15→22:18)
[2019-10-03] MEDS: DEXAMETHASONE 4 MG TAB PO SCH (09:15)
[2019-10-03] MEDS: LOSARTAN 50 MG TABLET PO SCH (09:16)
[2019-10-03] MEDS: ASPIRIN 81 MG EC TAB PO SCH (09:16)
[2019-10-03] MEDS: FUROSEMIDE 10 MG/ML 2ML VIAL IV SCH ×3 (09:17→22:51)
[2019-10-03 12:00] VITALS: BP 115/70
[2019-10-03] MEDS: LOPERAMIDE 1 MG/7.5 ML UDCUP PO SCH (14:30)
[2019-10-03] MEDS ORDERED: REMDESIVIR (EUA) 520 100 MG VIAL IV ONE (15:00)
--- NOTE | 2019-10-03 15:05 | NUR ---
RDSCREEN - LOS X 7 Pt admitted with Hypoxia. Positive COVID-19. Bipap 100%, high risk requiring intubation, pending code status from family as per EMR. Recommend short term alternate means nutrition. Recommend continuous tube feeding Vital AF 1.2 initiated at 15mls/hr. Goal rate 50mls/hr. Recommend Flushes at 140mls Q4hrs. Tube feeding Recommendations faxed to , Attempt to contact nursing station, no answer x2. RD to continue to monitor. Please notify RD as additional nutrition concerns arise. Thank you.
[2019-10-03 16:00] VITALS: BP 112/64
[2019-10-03] MEDS: REMDESIVIR (EUA) 520 100 MG in SODIUM CHLORIDE 0.9% 250 ML IV SCH (17:07)
[2019-10-03 19:00] VITALS: BP 115/69
[2019-10-03] MEDS: INSULIN GLARGINE 100 UNITS/ML 10 ML VIAL SQ SCH (21:00)
[2019-10-03] MEDS: SIMVASTATIN 20 MG TABLET PO SCH ×2 (21:00→22:18)
[2019-10-03 22:08] LABS: ABG BASE EXCESS 7.1 mmol/L (-2.0-3.0); ABG HCO3 31.6 mmol/L (21.0-28.0); ABG OXYGEN SATURATION 84.4 % (95.0-99.0); ABG PCO2 44 mmHg (32-45)
--- NOTE | 2019-10-03 23:36 | NUR ---
pts physician paged @[phone] and @[phone]; Tessie Robins ([facility]) returned page and informed of pts critical ABG results; pO2 = 45.6 and O2SAT (est) 84.4%; as well as pts c/o SOB, inability to prone due to physical weight/size and fear of not being able to breathe; pts O2 sats are ranging from 78-85% with exertion and/or talking, eating, drinking; at rest pts O2 sats range between 88-90%; WIRE PREPARATION MACHINE TENDER ordered Geodon 10mg IM and stated to attempt to prone pt; pt informed of medical guidance and stated she feels she will be unable to breath if she lays prone; pt educated of next procedure after Bipap if O2 sats continue to decline is intubation; pt stated she wants "to live and I want the tube;" pt is currently resting at this time and O2 sats with POX to ear range between 87-90%; pt continues to ask for ice and water and informed that every time the seal of her Bipap is broken her O2 sats drop below 88%; pt is currently resting supine in bed; no distress noted at this time. Surekha Duran, RN
[2019-10-04] VITALS: BP 117/56
[2019-10-04] MEDS: ENOXAPARIN SODIUM 120 MG/0.8ML SQ SCH ×3 (02:19→16:48)
[2019-10-04 04:00] VITALS: BP 121/76
[2019-10-04] MEDS ORDERED: ZIPRASIDONE MESYLATE 20 MG/VIAL IM SCH (05:15)
[2019-10-04] MEDS: PHARMACY COMMUNICATION MISC SCH ×3 (05:30→21:30)
[2019-10-04] MEDS: ZOSYN 3.375GM+NS 50ML 50 ML IV SCH ×3 (05:46→21:54)
[2019-10-04] MEDS: INSULIN HUMULIN R 100 UNIT/ML 3ML SQ SCH (06:17)
[2019-10-04] MEDS: HUMALOG PO SS2 SQ SCH ×4 (06:17→22:00)
[2019-10-04 06:29] LABS: BASOPHILS % (AUTO) 0.2 % (0.0-5.0); EOSINOPHILS % (AUTO) 0.6 % (0.0-8.0); HEMATOCRIT 36.6 % (36-48); LYMPHOCYTES % (AUTO) 6.1 % (21.0-51.0); MEAN CORPUSCULAR HEMOGLOBIN 26.3 pg (27.0-33.0); MEAN CORPUSCULAR HGB CONC 30.9 g/dL (32.0-36.0); MEAN CORPUSCULAR VOLUME 85.3 fL (79-99); MONOCYTES % (AUTO) 1.2 % (3.0-13.0); NUCLEATED RED BLOOD CELLS 0.1 % (0.0-0.19); PLATELET COUNT (AUTO) 502 K/uL (130-400); RED BLOOD CELL COUNT(AUTO) 4.29 MIL/uL (4.00-5.50); WHITE BLOOD COUNT (AUTO) 22.6 K/uL (4.8-10.8)
[2019-10-04] MEDS ORDERED: ZIPRASIDONE MESYLATE 20 MG/VIAL IM PRN (06:45)
[2019-10-04 06:50] LABS: ALBUMIN 2.1 g/dL (3.5-5.0); BILIRUBIN,DIRECT 0.2 mg/dL (0.0-0.3); BILIRUBIN,TOTAL 0.5 mg/dL (0.2-1.0); CREATININE 1.1 mg/dL (0.5-1.5); MAGNESIUM 2.2 mg/dL (1.80-2.40); PHOSPHORUS 3.8 mg/dL (2.5-4.9); POTASSIUM 3.8 mmol/L (3.5-5.1); TOTAL PROTEIN, SERUM 7.9 g/dL (6.0-8.3)
[2019-10-04 07:35] VITALS: BP 129/73
--- NOTE | 2019-10-04 08:30 | NUR ---
ASSESSMENT ENCOUNTERED PT IN HIGH DELONG'S POSITION, WITH BIPAP IN PLACE, A&OX3, CALM COOPERATIVE AND DOES NOT APPEAR TO BE IN ANY DISTRESS, O2SATS 93%, TRIAL TO NRB INITIATED FOR MEDICATION ADMINISTRATION, O2SATS 90% ON NRB, PT TOLERATING FLUIDS AND MEDICATION WITH NO THROAT CLEARING OR COUGH. INFORMED PT THAT BIPAP WILL BE PLACED BACK ON FOR DIAPER AND LINEN CHANGE. PT WAS ABLE TO LAY FLAT WITH BIPAP IN PLACE BUT BECAME TACHYPNEIC, PT QUICKLY RETURNED TO HIGH FOWLERS POSITION AND O2SATS RETURNED TO 90%. INFORMED PT IF MD RECOMMENDED LYNN CATH PLACEMENT DUE TO DOSING SCHEDULE OF DIURETICS, IF SHE WOULD CONSIDER LYNN PLACEMENT. PT AGREED AND WOULD LIKE LYNN PLACED. FAUSTINO HOROWITZ AT BEDSIDE, UPDATED AND ORDERS RECEIVED, LYNN CATH IN PLACE, TOLERATED WELL, INFORMED PT THAT BIPAP WILL REMAIN IN PLACE UNTIL RE-EVALUATION FOR MEALS.
[2019-10-04] MEDS: ASCORBIC ACID 500 MG TAB PO SCH (09:00)
[2019-10-04] MEDS: MAGNESIUM OXIDE 400 MG TABLET PO SCH ×3 (10:17→21:54)
[2019-10-04] MEDS: DEXAMETHASONE 4 MG TAB PO SCH (10:17)
[2019-10-04] MEDS: ASPIRIN 81 MG EC TAB PO SCH (10:17)
[2019-10-04] MEDS: FAMOTIDINE 20MG TAB 20 MG TAB PO SCH (10:17)
[2019-10-04] MEDS: GABAPENTIN 300 MG CAPSULE PO SCH ×3 (10:17→21:54)
[2019-10-04] MEDS: CYCLOBENZAPRINE HCL 10 MG TABLET PO SCH ×3 (10:17→21:54)
[2019-10-04] MEDS: SERTRALINE HCL 50 MG TABLET PO SCH (10:17)
[2019-10-04] MEDS: ZINC SULFATE 220 CAPSULE PO SCH (10:17)
[2019-10-04] MEDS: MULTIVITAMIN TABLET PO SCH (10:17)
[2019-10-04] MEDS: LOSARTAN 50 MG TABLET PO SCH (10:17)
[2019-10-04] MEDS: FUROSEMIDE 10 MG/ML 2ML VIAL IV SCH (10:18)
[2019-10-04 10:45] LABS: ABG HCO3 28.9 mmol/L (21.0-28.0); ABG OXYGEN SATURATION 87.8 % (95.0-99.0); ABG PCO2 44 mmHg (32-45)
--- NOTE | 2019-10-04 11:00 | NUR ---
BIPAP EVAL PT WAS ABLE TO TOLERATE FLUIDS WITH NO THROAT CLEARING OR COUGH BUT IN THE BRIEF MOMENT WHEN MASK REMOVED, O2SAT DECREASED TO 81% AND SLOWLY RETURNED TO 90% UPON REPLACING BIPAP MASK. PT IN HIGH DELONG'S POSITION, CALL LIGHT WITHIN REACH.
[2019-10-04 11:27] VITALS: BP 121/70
[2019-10-04] MEDS ORDERED: ONDANSETRON HCL 4 MG/2 ML VIAL ONE (12:32)
[2019-10-04] MEDS ORDERED: ONDANSETRON HCL 4 MG/2 ML VIAL IVP PRN (13:15)
[2019-10-04] MEDS: LOPERAMIDE 1 MG/7.5 ML UDCUP PO SCH (14:30)
[2019-10-04] MEDS ORDERED: REMDESIVIR (EUA) 520 100 MG VIAL IV ONE (15:00)
--- NOTE | 2019-10-04 15:15 | NUR ---
NUTRITION INFORMED ELECTION WATCHER ROMIE HOROWITZ OF PT INABILITY TO WEAN OFF BIPAP AND SHE STATED TO SEEK RECOMMENDATION FROM COMMERCIAL ANNOUNCER FOR PPN. SHE ALSO STATED THAT DR GRUBER WOULD LIKE PT TRANSFERRED TO ICU WHEN BED AVAILABLE. CHARGE NURSE ELIE BELTRAN AND LOSS PREVENTION CONSULTANT Orestes MCCARTHY RN NOTIFIED.
--- NOTE | 2019-10-04 15:35 | NUR ---
RD UPDATE Pt with BiPap in place. Unable to remove for PO nutrition or feeding tube placement as per RN. Recommend alternate means nutrition/Peripheral nutrition Discussed with RN, pending MD approval. RD to continue to monitor. Please notify as additional concerns arise. Thank you.
[2019-10-04 16:15] VITALS: BP 118/66
[2019-10-04] MEDS: REMDESIVIR (EUA) 520 100 MG in SODIUM CHLORIDE 0.9% 250 ML IV SCH (16:30)
[2019-10-04] MEDS ORDERED: PHARMACY COMMUNICATION MISC SCH (16:30)
[2019-10-04 19:45] VITALS: BP 111/61
--- NOTE | 2019-10-04 21:10 | NUR ---
Transfer to ICU Pt transferred to ICU bed 212 via maría, RT and REAL ESTATE EXECUTIVE ASSISTANT present. Pt on Bi-Pap FiO2 100%, O2 sat 85-88%. A/Ox3, cooperative. Report given to RUBY Christensen and care of pt transferred.
[2019-10-04] MEDS: SIMVASTATIN 20 MG TABLET PO SCH (21:54)
[2019-10-04] MEDS: INSULIN GLARGINE 100 UNITS/ML 10 ML VIAL SQ SCH (21:57)
[2019-10-04] MEDS: FUROSEMIDE 10 MG/ML 4ML VIAL IV SCH (22:00)
--- NOTE | 2019-10-04 22:15 | NUR ---
Admission Received pt via [id number] upgrade status to ICU into 212,Pt cont on BiPAP with Fi02 AT 100% Sats 90-91 pt desats to 88; however recovers quickly. Pt resting quietly HOB 30degrees, pt has no complaints of pain at this time.
[2019-10-05] VITALS (42 sets, daily range): BP systolic 85–160; BP diastolic 37–78
[2019-10-05 03:45] LABS: BASOPHILS % (AUTO) 0.2 % (0.0-5.0); HEMATOCRIT 35.8 % (36-48); LYMPHOCYTES % (AUTO) 3.6 % (21.0-51.0); MEAN CORPUSCULAR HEMOGLOBIN 25.9 pg (27.0-33.0); MEAN CORPUSCULAR VOLUME 83.6 fL (79-99); MONOCYTES % (AUTO) 1.7 % (3.0-13.0); NEUTROPHILS % (AUTO) 90.7 % (40.0-77.0); PLATELET COUNT (AUTO) 465 K/uL (130-400); RED BLOOD CELL COUNT(AUTO) 4.28 MIL/uL (4.00-5.50); RED CELL DISTRIBUTION WIDTH 14.8 % (11.0-15.5); WHITE BLOOD COUNT (AUTO) 24.4 K/uL (4.8-10.8)
[2019-10-05 04:02] LABS: ALBUMIN 1.9 g/dL (3.5-5.0); BILIRUBIN,DIRECT 0.2 mg/dL (0.0-0.3); BILIRUBIN,TOTAL 0.4 mg/dL (0.2-1.0); CREATININE 1.2 mg/dL (0.5-1.5); MAGNESIUM 2.3 mg/dL (1.80-2.40); POTASSIUM 3.5 mmol/L (3.5-5.1); TOTAL PROTEIN, SERUM 7.4 g/dL (6.0-8.3)
[2019-10-05] MEDS: PHARMACY COMMUNICATION MISC SCH ×3 (05:30→21:30)
[2019-10-05] MEDS: ZOSYN 3.375GM+NS 50ML 50 ML IV SCH ×3 (06:01→20:21)
[2019-10-05] MEDS: FUROSEMIDE 10 MG/ML 4ML VIAL IV SCH ×2 (06:01→17:27)
[2019-10-05] MEDS: LEVOTHYROXINE 50 MCG TABLET PO SCH (06:03)
[2019-10-05] MEDS: HUMALOG PO SS2 SQ SCH ×4 (07:29→20:42)
[2019-10-05] MEDS: ZINC SULFATE 220 CAPSULE PO SCH (07:59)
[2019-10-05] MEDS: LOSARTAN 50 MG TABLET PO SCH (07:59)
[2019-10-05] MEDS: SERTRALINE HCL 50 MG TABLET PO SCH (07:59)
[2019-10-05] MEDS: MULTIVITAMIN TABLET PO SCH (07:59)
[2019-10-05] MEDS: ASPIRIN 81 MG EC TAB PO SCH (07:59)
[2019-10-05] MEDS: ASCORBIC ACID 500 MG TAB PO SCH (08:00)
[2019-10-05] MEDS: FAMOTIDINE/PF 20 MG/2 ML VIAL IV SCH (08:00)
[2019-10-05] MEDS: DEXAMETHASONE 4 MG TAB PO SCH (08:00)
[2019-10-05] MEDS: ENOXAPARIN SODIUM 120 MG/0.8ML SQ SCH ×2 (08:08→20:22)
[2019-10-05] MEDS: GABAPENTIN 300 MG CAPSULE PO SCH ×3 (08:22→20:21)
[2019-10-05] MEDS: CYCLOBENZAPRINE HCL 10 MG TABLET PO SCH ×3 (08:22→20:21)
[2019-10-05] MEDS: MAGNESIUM OXIDE 400 MG TABLET PO SCH ×3 (08:22→20:21)
[2019-10-05 16:32] LABS: ABG BASE EXCESS 5.5 mmol/L (-2.0-3.0); ABG HCO3 30.1 mmol/L (21.0-28.0); ABG OXYGEN SATURATION 91.4 % (95.0-99.0); ABG PCO2 44 mmHg (32-45)
[2019-10-05] MEDS: INSULIN GLARGINE 100 UNITS/ML 10 ML VIAL SQ SCH (20:24)
[2019-10-05] MEDS: SIMVASTATIN 20 MG TABLET PO SCH (20:26)
[2019-10-06] VITALS (23 sets, daily range): BP systolic 97–157; BP diastolic 35–109
[2019-10-06 04:18] LABS: ABG BASE EXCESS 7.8 mmol/L (-2.0-3.0); ABG HCO3 33.1 mmol/L (21.0-28.0); ABG OXYGEN SATURATION 89.4 % (95.0-99.0); ABG PCO2 48 mmHg (32-45)
[2019-10-06] MEDS: ZOSYN 3.375GM+NS 50ML 50 ML IV SCH ×3 (04:37→20:50)
[2019-10-06] MEDS: PHARMACY COMMUNICATION MISC SCH ×3 (05:30→21:05)
[2019-10-06 05:32] LABS: BASOPHILS % (AUTO) 0.1 % (0.0-5.0); EOSINOPHILS % (AUTO) 0.2 % (0.0-8.0); HEMATOCRIT 37.6 % (36-48); LYMPHOCYTES % (AUTO) 5.2 % (21.0-51.0); MEAN CORPUSCULAR HEMOGLOBIN 26.3 pg (27.0-33.0); MEAN CORPUSCULAR HGB CONC 30.9 g/dL (32.0-36.0); MEAN CORPUSCULAR VOLUME 85.3 fL (79-99); MONOCYTES % (AUTO) 1.8 % (3.0-13.0); NEUTROPHILS % (AUTO) 90.4 % (40.0-77.0); PLATELET COUNT (AUTO) 490 K/uL (130-400); RED BLOOD CELL COUNT(AUTO) 4.41 MIL/uL (4.00-5.50); RED CELL DISTRIBUTION WIDTH 14.7 % (11.0-15.5); WHITE BLOOD COUNT (AUTO) 21.8 K/uL (4.8-10.8)
[2019-10-06] MEDS: FUROSEMIDE 10 MG/ML 4ML VIAL IV SCH ×2 (05:49→16:35)
[2019-10-06 05:59] LABS: ALBUMIN 2.1 g/dL (3.5-5.0); BILIRUBIN,DIRECT 0.1 mg/dL (0.0-0.3); BILIRUBIN,TOTAL 0.4 mg/dL (0.2-1.0); CREATININE 1.2 mg/dL (0.5-1.5); PHOSPHORUS 3.7 mg/dL (2.5-4.9); POTASSIUM 3.8 mmol/L (3.5-5.1); TOTAL PROTEIN, SERUM 7.8 g/dL (6.0-8.3)
[2019-10-06] MEDS: LEVOTHYROXINE 50 MCG TABLET PO SCH (06:23)
[2019-10-06] MEDS: HUMALOG PO SS2 SQ SCH ×4 (06:26→20:56)
[2019-10-06] MEDS: SERTRALINE HCL 50 MG TABLET PO SCH (08:41)
[2019-10-06] MEDS: ASPIRIN 81 MG EC TAB PO SCH (08:41)
[2019-10-06] MEDS: MULTIVITAMIN TABLET PO SCH (08:41)
[2019-10-06] MEDS: LOSARTAN 50 MG TABLET PO SCH (08:41)
[2019-10-06] MEDS: GABAPENTIN 300 MG CAPSULE PO SCH ×3 (08:42→20:52)
[2019-10-06] MEDS: ASCORBIC ACID 500 MG TAB PO SCH (08:42)
[2019-10-06] MEDS: ZINC SULFATE 220 CAPSULE PO SCH (08:42)
[2019-10-06] MEDS: CYCLOBENZAPRINE HCL 10 MG TABLET PO SCH ×3 (08:42→20:51)
[2019-10-06] MEDS: DEXAMETHASONE 4 MG TAB PO SCH (08:42)
[2019-10-06] MEDS: FAMOTIDINE/PF 20 MG/2 ML VIAL IV SCH (08:42)
[2019-10-06] MEDS: ENOXAPARIN SODIUM 120 MG/0.8ML SQ SCH ×2 (08:43→20:51)
[2019-10-06] MEDS: MAGNESIUM OXIDE 400 MG TABLET PO SCH ×3 (09:00→20:50)
--- NOTE | 2019-10-06 09:44 | NUR ---
ELEVATOR REPAIRER RICHARDSON GRUBBS ELEVATOR REPAIRER UPDATED ON PT STATUS AND CODE STATUS, PT MORE COMPLIANT WITH BIPAP AND POC.
--- NOTE | 2019-10-06 09:45 | NUR ---
AMA PT REQUESTING TO LEAVE AMA. ROMIE PHARMACY PICKING TECHNICIAN AWARE AND AT BSD, EXPLAINED TO PATIENT RISK INCLUDING . I ALSO PROVIDED EMOTIONAL SUPPORT REGARDING FEARFUL FEELINGS OF "SLEEPING HERE AT NIGHT." SON AWARE OF PTS WISHES AND WILL PICK HER UP. PT VERBALIZED UNDERSTANDING AND CONTINUES WISHES FOR AMA. PAPERWORK SIGNED AT 1018AM. AWAITING PT MODE OF TRANSPORT.
--- NOTE | 2019-10-06 11:15 | NUR ---
RETRACT AMA PT STATES SHE WILL STAY IN THE HOSPITAL AFTER SPEAKING WITH THE . PT AWARE OF NEXT PLAN OF CARE. PT AGREES AND EMOTIONAL SUPPORT PROVIDED. VSS. DAWSON BB SHOT PACKER AND PUPIL PERSONNEL SERVICES DIRECTOR AWARE. WILL CONTINUE TO MONITOR.
--- NOTE | 2019-10-06 16:15 | NUR ---
DR BERT FERNANDEZ AT [facility]. UPDATED ON PT STATUS, ASSESSMENT, AND PLAN OF CARE. NO NEW ORDERS AT THIS TIME.
--- NOTE | 2019-10-06 16:51 | NUR ---
AGUSTIN GRANADOS MD ATTEMPTED TO CONTACT FAMILY REGARDING PLAN OF CARE. FAMILY HAS NOT MADE CONTACT TODAY. WILL ATTEMPT TO MAKE CONTACT NOW. Addendum: 10/06/19 at 1655 by Dayami Gill RN RN DOCUMENTED WRONG PATIENT
[2019-10-06] MEDS: SIMVASTATIN 20 MG TABLET PO SCH (20:50)
[2019-10-06] MEDS: INSULIN GLARGINE 100 UNITS/ML 10 ML VIAL SQ SCH (20:55)
[2019-10-07] VITALS (10 sets, daily range): BP systolic 111–137; BP diastolic 48–79
[2019-10-07] MEDS: ZOSYN 3.375GM+NS 50ML 50 ML IV SCH ×3 (04:35→20:53)
[2019-10-07] MEDS: PHARMACY COMMUNICATION MISC SCH ×3 (04:35→20:56)
[2019-10-07] MEDS: FUROSEMIDE 10 MG/ML 4ML VIAL IV SCH ×2 (04:35→17:13)
[2019-10-07 05:33] LABS: BASOPHILS % (AUTO) 0.2 % (0.0-5.0); EOSINOPHILS % (AUTO) 0.3 % (0.0-8.0); HEMATOCRIT 40.9 % (36-48); LYMPHOCYTES % (AUTO) 5.9 % (21.0-51.0); MEAN CORPUSCULAR HEMOGLOBIN 26.2 pg (27.0-33.0); MEAN CORPUSCULAR HGB CONC 30.6 g/dL (32.0-36.0); MEAN CORPUSCULAR VOLUME 85.7 fL (79-99); NEUTROPHILS % (AUTO) 89.7 % (40.0-77.0); PLATELET COUNT (AUTO) 484 K/uL (130-400); RED BLOOD CELL COUNT(AUTO) 4.77 MIL/uL (4.00-5.50); RED CELL DISTRIBUTION WIDTH 15.4 % (11.0-15.5); WHITE BLOOD COUNT (AUTO) 19.6 K/uL (4.8-10.8)
[2019-10-07 05:47] LABS: ALBUMIN 2.2 g/dL (3.5-5.0); BILIRUBIN,DIRECT 0.2 mg/dL (0.0-0.3); BILIRUBIN,TOTAL 0.5 mg/dL (0.2-1.0); CREATININE 1.2 mg/dL (0.5-1.5); MAGNESIUM 2.8 mg/dL (1.80-2.40); PHOSPHORUS 3.8 mg/dL (2.5-4.9); POTASSIUM 3.7 mmol/L (3.5-5.1)
[2019-10-07] MEDS: LEVOTHYROXINE 50 MCG TABLET PO SCH (06:22)
[2019-10-07] MEDS: HUMALOG PO SS2 SQ SCH ×4 (06:45→20:55)
[2019-10-07 07:04] LABS: ABG BASE EXCESS 8.9 mmol/L (-2.0-3.0); ABG HCO3 33.6 mmol/L (21.0-28.0); ABG OXYGEN SATURATION 89.8 % (95.0-99.0); ABG PCO2 46 mmHg (32-45)
[2019-10-07] MEDS: GABAPENTIN 300 MG CAPSULE PO SCH ×3 (08:34→20:54)
[2019-10-07] MEDS: ZINC SULFATE 220 CAPSULE PO SCH (08:34)
[2019-10-07] MEDS: MULTIVITAMIN TABLET PO SCH (08:34)
[2019-10-07] MEDS: DEXAMETHASONE 4 MG TAB PO SCH (08:35)
[2019-10-07] MEDS: FAMOTIDINE/PF 20 MG/2 ML VIAL IV SCH (08:35)
[2019-10-07] MEDS: CYCLOBENZAPRINE HCL 10 MG TABLET PO SCH ×3 (08:35→20:54)
[2019-10-07] MEDS: SERTRALINE HCL 50 MG TABLET PO SCH (08:35)
[2019-10-07] MEDS: ASPIRIN 81 MG EC TAB PO SCH (08:35)
[2019-10-07] MEDS: ASCORBIC ACID 500 MG TAB PO SCH (08:35)
[2019-10-07] MEDS: ENOXAPARIN SODIUM 120 MG/0.8ML SQ SCH ×2 (08:36→20:53)
[2019-10-07] MEDS: LOSARTAN 50 MG TABLET PO SCH (08:36)
[2019-10-07] MEDS: MAGNESIUM OXIDE 400 MG TABLET PO SCH ×3 (08:38→20:54)
[2019-10-07] MEDS: POTASSIUM CHLORIDE 20 MEQ ERTAB PO PRN (14:39)
[2019-10-07] MEDS: SIMVASTATIN 20 MG TABLET PO SCH (20:54)
[2019-10-07] MEDS: INSULIN GLARGINE 100 UNITS/ML 10 ML VIAL SQ SCH (20:56)
[2019-10-08 03:14] VITALS: BP 131/75
[2019-10-08 04:29] LABS: BASOPHILS % (AUTO) 0.2 % (0.0-5.0); EOSINOPHILS % (AUTO) 0.8 % (0.0-8.0); HEMATOCRIT 40.9 % (36-48); LYMPHOCYTES % (AUTO) 6.1 % (21.0-51.0); MEAN CORPUSCULAR HEMOGLOBIN 26.7 pg (27.0-33.0); MEAN CORPUSCULAR HGB CONC 29.6 g/dL (32.0-36.0); MEAN CORPUSCULAR VOLUME 90.1 fL (79-99); NEUTROPHILS % (AUTO) 89.9 % (40.0-77.0); PLATELET COUNT (AUTO) 387 K/uL (130-400); RED BLOOD CELL COUNT(AUTO) 4.54 MIL/uL (4.00-5.50); RED CELL DISTRIBUTION WIDTH 15.7 % (11.0-15.5); WHITE BLOOD COUNT (AUTO) 19.2 K/uL (4.8-10.8)
[2019-10-08 04:51] LABS: BILIRUBIN,TOTAL 0.5 mg/dL (0.2-1.0); CREATININE 1.1 mg/dL (0.5-1.5); MAGNESIUM 2.8 mg/dL (1.80-2.40); PHOSPHORUS 3.5 mg/dL (2.5-4.9); POTASSIUM 3.8 mmol/L (3.5-5.1); TOTAL PROTEIN, SERUM 7.5 g/dL (6.0-8.3)
[2019-10-08] MEDS: PHARMACY COMMUNICATION MISC SCH ×3 (05:30→21:30)
[2019-10-08] MEDS: FUROSEMIDE 10 MG/ML 4ML VIAL IV SCH ×2 (05:38→16:55)
[2019-10-08] MEDS: ZOSYN 3.375GM+NS 50ML 50 ML IV SCH ×3 (05:38→21:04)
[2019-10-08] MEDS: LEVOTHYROXINE 50 MCG TABLET PO SCH (05:38)
[2019-10-08] MEDS: HUMALOG PO SS2 SQ SCH ×4 (05:51→21:00)
[2019-10-08 08:00] VITALS: BP 124/80
[2019-10-08] MEDS: DEXAMETHASONE 4 MG TAB PO SCH (09:00)
[2019-10-08] MEDS: LOSARTAN 50 MG TABLET PO SCH (09:51)
[2019-10-08] MEDS: ENOXAPARIN SODIUM 120 MG/0.8ML SQ SCH ×2 (09:51→21:06)
[2019-10-08] MEDS: MULTIVITAMIN TABLET PO SCH (09:51)
[2019-10-08] MEDS: FAMOTIDINE/PF 20 MG/2 ML VIAL IV SCH (09:51)
[2019-10-08] MEDS: MAGNESIUM OXIDE 400 MG TABLET PO SCH ×3 (09:52→21:06)
[2019-10-08] MEDS: GABAPENTIN 300 MG CAPSULE PO SCH ×3 (09:52→21:07)
[2019-10-08] MEDS: ZINC SULFATE 220 CAPSULE PO SCH (09:52)
[2019-10-08] MEDS: ASPIRIN 81 MG EC TAB PO SCH (09:52)
[2019-10-08] MEDS: SERTRALINE HCL 50 MG TABLET PO SCH (09:52)
[2019-10-08] MEDS: CYCLOBENZAPRINE HCL 10 MG TABLET PO SCH ×3 (09:52→21:06)
[2019-10-08] MEDS: ASCORBIC ACID 500 MG TAB PO SCH (09:52)
[2019-10-08 11:30] VITALS: BP 141/83
[2019-10-08 15:30] VITALS: BP 115/71
[2019-10-08 19:39] VITALS: BP 135/74
[2019-10-08] MEDS: INSULIN GLARGINE 100 UNITS/ML 10 ML VIAL SQ SCH (21:05)
[2019-10-08] MEDS: SIMVASTATIN 20 MG TABLET PO SCH (21:06)
[2019-10-08 23:36] VITALS: BP 145/72
[2019-10-09] VITALS (9 sets, daily range): BP systolic 102–141; BP diastolic 60–77
[2019-10-09 03:57] LABS: ABG BASE EXCESS 7.3 mmol/L (-2.0-3.0); ABG HCO3 32.1 mmol/L (21.0-28.0); ABG OXYGEN SATURATION 95.6 % (95.0-99.0); ABG PCO2 45 mmHg (32-45)
[2019-10-09 04:50] LABS: BASOPHILS % (AUTO) 0.2 % (0.0-5.0); HEMATOCRIT 42.1 % (36-48); LYMPHOCYTES % (AUTO) 6.7 % (21.0-51.0); MEAN CORPUSCULAR HEMOGLOBIN 26.1 pg (27.0-33.0); MEAN CORPUSCULAR HGB CONC 29.5 g/dL (32.0-36.0); MEAN CORPUSCULAR VOLUME 88.6 fL (79-99); MONOCYTES % (AUTO) 1.9 % (3.0-13.0); NEUTROPHILS % (AUTO) 88.3 % (40.0-77.0); NUCLEATED RED BLOOD CELLS 0.2 % (0.0-0.19); PLATELET COUNT (AUTO) 439 K/uL (130-400); RED BLOOD CELL COUNT(AUTO) 4.75 MIL/uL (4.00-5.50); RED CELL DISTRIBUTION WIDTH 16.1 % (11.0-15.5); WHITE BLOOD COUNT (AUTO) 18.6 K/uL (4.8-10.8)
[2019-10-09] MEDS: FUROSEMIDE 10 MG/ML 4ML VIAL IV SCH (05:04)
[2019-10-09] MEDS: ZOSYN 3.375GM+NS 50ML 50 ML IV SCH ×3 (05:04→21:27)
[2019-10-09] MEDS: LEVOTHYROXINE 50 MCG TABLET PO SCH (05:04)
[2019-10-09] MEDS: PHARMACY COMMUNICATION MISC SCH (05:04)
[2019-10-09 05:14] LABS: ALBUMIN 2.2 g/dL (3.5-5.0); BILIRUBIN,TOTAL 0.5 mg/dL (0.2-1.0); CREATININE 1.7 mg/dL (0.5-1.5); MAGNESIUM 3.3 mg/dL (1.80-2.40); PHOSPHORUS 4.5 mg/dL (2.5-4.9); POTASSIUM 3.5 mmol/L (3.5-5.1); TOTAL PROTEIN, SERUM 7.6 g/dL (6.0-8.3)
[2019-10-09] MEDS: HUMALOG PO SS2 SQ SCH ×4 (05:56→21:25)
[2019-10-09] MEDS: MULTIVITAMIN TABLET PO SCH (09:42)
[2019-10-09] MEDS: ZINC SULFATE 220 CAPSULE PO SCH (09:42)
[2019-10-09] MEDS: SERTRALINE HCL 50 MG TABLET PO SCH (09:42)
[2019-10-09] MEDS: ASCORBIC ACID 500 MG TAB PO SCH (09:42)
[2019-10-09] MEDS: MAGNESIUM OXIDE 400 MG TABLET PO SCH ×3 (09:43→21:27)
[2019-10-09] MEDS: ASPIRIN 81 MG EC TAB PO SCH (09:43)
[2019-10-09] MEDS: DEXAMETHASONE 4 MG TAB PO SCH (09:43)
[2019-10-09] MEDS: LOSARTAN 50 MG TABLET PO SCH (09:43)
[2019-10-09] MEDS: FAMOTIDINE/PF 20 MG/2 ML VIAL IV SCH (09:43)
[2019-10-09] MEDS: GABAPENTIN 300 MG CAPSULE PO SCH ×3 (09:43→21:27)
[2019-10-09] MEDS: CYCLOBENZAPRINE HCL 10 MG TABLET PO SCH ×3 (09:43→21:27)
[2019-10-09] MEDS: ENOXAPARIN SODIUM 120 MG/0.8ML SQ SCH ×2 (09:44→21:27)
--- NOTE | 2019-10-09 11:21 | NUR ---
SPOKE WITH PATIENT'S SON, SHI WEI, VIA PHONE WITH PATIENT'S VERBAL CONSENT. SON UPDATED ON PT'S CURRENT CONDITION AND PLAN OF CARE.
[2019-10-09 16:36] LABS: ABG BASE EXCESS -2.9 mmol/L (-2.0-3.0); ABG HCO3 22.9 mmol/L (21.0-28.0); ABG OXYGEN SATURATION 90.1 % (95.0-99.0); ABG PCO2 43 mmHg (32-45)
--- NOTE | 2019-10-09 16:45 | NUR ---
16:27 PT FOUND WITH BI-PAP OFF. O2 SAT READING 78%. BI-PAP REAPPLIED TO PATIENT. RAPID RESPONSE ACTIVATED. SHALLOW RESPIRATIONS, UNRESPONSIVE TO VERBAL AND TACTILE STIMULI, PUPILS DILATED AND REACTS [id number], [place] COLOR, HANDS AND FEET COOL TO TOUCH, DECREASED CAPILLARY REFILL. BLOOD PRESSURE AND HEART RATE STABLE. 16:28 RAPID RESPONSE TEAM AT BEDSIDE. PATIENT SLOWLY BEGIN TO RESPOND TO TACTILE STIMULI, THEN VERBAL STIMULI. O2 SAT INCREASED TO 92%. SKIN COLOR RETURNED TO BASELINE. HANDS AND FEET WARM TO TOUCH WITH CAPILLARY REFILL WITHIN NORMAL LIMITS. 16:35 PATIENT ALERT AT THIS TIME AND UNABLE TO RECALL EVENT, BUT ORIENTED TO SELF AND PLACE, REORIENTED TO TIME AND CURRENT SITUATION. PROVIDER NOTIFIED WITH INSTRUCTIONS TO VERBAL EDUCATED PATIENT ON THE IMPORTANCE OF USE OF BI-PAP AT THIS TIME FOR EFFECTIVE TREATMENT, MITTENS TO BE PLACED ON PATIENT'S HANDS IF SHE ATTEMPTS TO OR DOES REMOVE BI-PAP AGAIN. SPOKE WITH PATIENT'S SPOUSE, AGATA CORONADO, VIA PHONE TO UPDATE ON PT'S RECENT EVENT. SPOUSE REQUESTED THAT STAFF REINFORCE THE IMPORTANCE OF COMPLIANCE WITH ALL TREATMENTS TO GET BETTER TO COME HOME.
[2019-10-09] MEDS ORDERED: FUROSEMIDE 10 MG/ML 2ML VIAL IVP SCH (17:00)
[2019-10-09 20:30] LABS: CREATININE 1.7 mg/dL (0.5-1.5); POTASSIUM 3.6 mmol/L (3.5-5.1)
[2019-10-09] MEDS: INSULIN GLARGINE 100 UNITS/ML 10 ML VIAL SQ SCH (21:26)
[2019-10-09] MEDS: SIMVASTATIN 20 MG TABLET PO SCH (21:27)
[2019-10-10 03:16] VITALS: BP 106/77
[2019-10-10] MEDS: LEVOTHYROXINE 50 MCG TABLET PO SCH (05:19)
[2019-10-10] MEDS: ZOSYN 3.375GM+NS 50ML 50 ML IV SCH (06:11)
[2019-10-10] MEDS: HUMALOG PO SS2 SQ SCH ×4 (06:12→21:53)
[2019-10-10 08:00] VITALS: BP 107/56
[2019-10-10] MEDS: ASPIRIN 81 MG EC TAB PO SCH (09:00)
[2019-10-10] MEDS: ZINC SULFATE 220 CAPSULE PO SCH (09:00)
[2019-10-10] MEDS: LOSARTAN 50 MG TABLET PO SCH (09:00)
[2019-10-10] MEDS: MULTIVITAMIN TABLET PO SCH (09:00)
[2019-10-10] MEDS: CYCLOBENZAPRINE HCL 10 MG TABLET PO SCH ×3 (09:00→20:57)
[2019-10-10] MEDS: SERTRALINE HCL 50 MG TABLET PO SCH (09:00)
[2019-10-10] MEDS: GABAPENTIN 300 MG CAPSULE PO SCH ×3 (09:00→20:57)
[2019-10-10] MEDS: DEXAMETHASONE 4 MG TAB PO SCH (09:00)
[2019-10-10] MEDS: ASCORBIC ACID 500 MG TAB PO SCH (09:00)
[2019-10-10] MEDS: MAGNESIUM OXIDE 400 MG TABLET PO SCH ×3 (09:00→20:57)
[2019-10-10] MEDS: FAMOTIDINE/PF 20 MG/2 ML VIAL IV SCH (09:17)
[2019-10-10] MEDS: ENOXAPARIN SODIUM 120 MG/0.8ML SQ SCH ×2 (09:18→21:50)
[2019-10-10 11:30] VITALS: BP 108/88
--- NOTE | 2019-10-10 11:31 | NUR ---
SPOKE WITH PATIENT'S SON, SHI WEI, VIA PHONE WITH PATIENT'S VERBAL CONSENT. SON UPDATED ON PT'S CURRENT CONDITION AND PLAN OF CARE. SHI WEI WILL UPDATE PT'S SPOUSE.
[2019-10-10 15:30] VITALS: BP 128/62
--- NOTE | 2019-10-10 18:17 | NUR ---
PATIENT'S SON, SHI WEI, UPDATED VIA PHONE AT [phone].
[2019-10-10 19:41] VITALS: BP 133/71
[2019-10-10] MEDS: SIMVASTATIN 20 MG TABLET PO SCH (20:57)
[2019-10-10] MEDS: INSULIN GLARGINE 100 UNITS/ML 10 ML VIAL SQ SCH (21:52)
[2019-10-10 23:05] VITALS: BP 107/70
[2019-10-11 03:38] VITALS: BP 120/76
[2019-10-11 04:55] LABS: ABG BASE EXCESS 7.5 mmol/L (-2.0-3.0); ABG HCO3 32.3 mmol/L (21.0-28.0); ABG OXYGEN SATURATION 96.3 % (95.0-99.0); ABG PCO2 46 mmHg (32-45)
[2019-10-11 05:00] LABS: HEMATOCRIT 40.4 % (36-48); MEAN CORPUSCULAR HEMOGLOBIN 26.5 pg (27.0-33.0); MEAN CORPUSCULAR VOLUME 88.4 fL (79-99); NUCLEATED RED BLOOD CELLS 0.4 % (0.0-0.19); RED BLOOD CELL COUNT(AUTO) 4.57 MIL/uL (4.00-5.50); RED CELL DISTRIBUTION WIDTH 17.3 % (11.0-15.5); WHITE BLOOD COUNT (AUTO) 18.6 K/uL (4.8-10.8)
[2019-10-11 05:41] LABS: CREATININE 1.7 mg/dL (0.5-1.5); POTASSIUM 3.4 mmol/L (3.5-5.1)
[2019-10-11] MEDS: HUMALOG PO SS2 SQ SCH ×4 (06:32→20:56)
--- NOTE | 2019-10-11 07:25 | NUR ---
PT AWAKE IN BED, ATTEMPTED TO REMOVE BIPAP, O2 SAT READING 92%. BI-PAP REATTACHED TO PATIENT. PT FIRMLY REDIRECTED AND INSTRUCTED NOT TO REMOVE BIPAP. NURSE WITH HIGH CONCERNS FOR PATIENT'S SAFETY. CHARGE NURSE MADE AWARE. PROVIDER NOTIFIED, NEW ORDER FOR 1:1 SITTER FOR PATIENT'S SAFETY. STRONGLY REINFORCED THE IMPORTANCE OF USE OF BI-PAP AT THIS TIME FOR EFFECTIVE TREATMENT, MITTENS ON PATIENT'S HANDS TO PREVENT ATTEMPTS TO REMOVE BI-PAP AGAIN UNTIL SITTER ARRIVES. WILL CONTINUE TO CLOSELY MONITOR. SAFETY MEASURES IN PLACE.
[2019-10-11 08:00] VITALS: BP 122/76
--- NOTE | 2019-10-11 08:37 | NUR ---
HOLD DYSPHAGIA EVAL. RECOMMEND NPO, SHORT-TERM ALTERNATE MEANS OF NUTRITION/HYDRATION. Pt CURRENTLY DEPENDENT ON BIPAP. Pt WITH RAPID RESPONSE YESTERDAY WHEN BIPAP WAS REMOVED WITH SPO2 SATURATION DROP INTO THE 60s. Pt IS AT HIGH RISK FOR ASPIRATION. NPO, SHORT-TERM ALTERNATE MEANS OF NUTRITION/HYDRATION IS RECOMMENDED AT THIS TIME. DIETARY CONSULT RECOMMENDED. SUMMER COUNSELOR COORDINATED WITH NURSE KELLER, WILL COMMUNICATE TO PRIMARY NURSE. Addendum: 10/11/19 at 0840 by GABINO CONN, [facility] Amended: Links added.
[2019-10-11] MEDS ORDERED: DEXAMETHASONE SOD PHOSPHATE 4 MG/ML 1ML VIAL IVP SCH (09:00)
[2019-10-11] MEDS: FAMOTIDINE/PF 20 MG/2 ML VIAL IV SCH (09:12)
[2019-10-11] MEDS: ENOXAPARIN SODIUM 120 MG/0.8ML SQ SCH ×2 (09:13→20:52)
[2019-10-11 11:30] VITALS: BP 114/80
--- NOTE | 2019-10-11 12:45 | NUR ---
PT HAD A NOSEBLEED AND WAS BLEEDING FROM THE MOUTH. Denton HOROWITZ NP NOTIFIED OF BLEEDS, INFORMED PT WAS ON LOVENOX 120 MG BID AND 100% BI-PAP. NEW ORDER RECEIVED FOR AFRIN NOSE SPRAY 2 SPRAYS EACH NOSTRIL Q1H TIL BLEED STOPS. APPLY PRESSURE, HOLD LOVENOX x24 HOURS.
[2019-10-11] MEDS ORDERED: OXYMETAZOLINE HCL SPRAY 15 ML BOTTLE EN PRN (13:45)
[2019-10-11 15:30] VITALS: BP 107/67
[2019-10-11 19:00] VITALS: BP 101/65
[2019-10-11] MEDS: INSULIN GLARGINE 100 UNITS/ML 10 ML VIAL SQ SCH (20:57)
[2019-10-11 23:00] VITALS: BP 79/60
[2019-10-12] MEDS ORDERED: SODIUM CHLORIDE 0.9% 1000ML 1,000 ML IV ONE (04:40)
[2019-10-12 04:59] LABS: ALBUMIN 2.1 g/dL (3.5-5.0); BILIRUBIN,TOTAL 0.7 mg/dL (0.2-1.0); CREATININE 3.6 mg/dL (0.5-1.5); MAGNESIUM 4.6 mg/dL (1.80-2.40); PHOSPHORUS 5.2 mg/dL (2.5-4.9); POTASSIUM 4.8 mmol/L (3.5-5.1); TOTAL PROTEIN, SERUM 7.2 g/dL (6.0-8.3)
[2019-10-12 05:02] LABS: BASOPHILS % (AUTO) 0.2 % (0.0-5.0); HEMATOCRIT 38.9 % (36-48); LYMPHOCYTES % (AUTO) 7.6 % (21.0-51.0); MEAN CORPUSCULAR HEMOGLOBIN 26.6 pg (27.0-33.0); MEAN CORPUSCULAR HGB CONC 28.8 g/dL (32.0-36.0); MEAN CORPUSCULAR VOLUME 92.4 fL (79-99); MONOCYTES % (AUTO) 2.1 % (3.0-13.0); NEUTROPHILS % (AUTO) 87.4 % (40.0-77.0); PLATELET COUNT (AUTO) 368 K/uL (130-400); RED BLOOD CELL COUNT(AUTO) 4.21 MIL/uL (4.00-5.50); RED CELL DISTRIBUTION WIDTH 17.8 % (11.0-15.5); WHITE BLOOD COUNT (AUTO) 28.6 K/uL (4.8-10.8)
[2019-10-12 05:59] LABS: PLATELET MORPHOLOGY PLT CLUMPS PRESENT
--- NOTE | 2019-10-12 06:40 | NUR ---
pt's blood pressure was trending down for the last two vital signs checks. pt was stable so a call was put out to get orders for a bolus of Saline, the iv came out and during the same time respiratory was trying to get a ABG she became tachypneic and then unresponsive, we checked for a pulse and couldn't find one so a code blue was called. Pt was transferred and report given to ICU nurse.
[2019-10-12] MEDS ORDERED: NOREPINEPHRINE BITARTRATE 32 MG in SODIUM CHLORIDE 0.9% 250 ML IV SCH (07:00)
[2019-10-12] MEDS ORDERED: LACTATED RINGERS 1000ML IV SCH (07:00)
[2019-10-12] MEDS ORDERED: NOREPINEPHRINE 4MG/NS 250ML 250 ML IV ONE (07:00)
[2019-10-12] MEDS ORDERED: VASOPRESSIN 40 UNITS in SODIUM CHLORIDE 0.9% 40 ML IV PRN (07:00)
[2019-10-12] MEDS ORDERED: LACTATED RINGERS 1000ML 1,000 ML IV ONE (07:11)
[2019-10-12] MEDS ORDERED: EPINEPHRINE 10 MG in SODIUM CHLORIDE 0.9% 240 ML IV PRN (07:17)
[2019-10-12] MEDS: HUMALOG PO SS2 SQ SCH (07:30)
[2019-10-12] MEDS ORDERED: LACTATED RINGERS 1000ML 1,000 ML IV SCH (07:30)
[2019-10-12] MEDS ORDERED: EPINEPHRINE 1 MG/ML AMPULE ONE (07:37)
[2019-10-12] MEDS ORDERED: SODIUM CHLORIDE 0.9% 250 ML IV ONE (07:38)
[2019-10-12] MEDS ORDERED: FENTANYL CITRATE PF 50 MCG/1 ML 5ML AMP IV ONE (07:57)
[2019-10-12] MEDS ORDERED: MIDAZOLAM HCL 1 MG/ML 2ML VIAL ONE (07:58)
[2019-10-12 08:52] LABS: ABG BASE EXCESS -22.8 mmol/L (-2.0-3.0); ABG HCO3 8.8 mmol/L (21.0-28.0); ABG OXYGEN SATURATION 96.4 % (95.0-99.0); ABG PCO2 43 mmHg (32-45)
[2019-10-12] MEDS: FAMOTIDINE/PF 20 MG/2 ML VIAL IV SCH (09:00)
[2019-10-12 09:20] VITALS: BP 50/30
--- NOTE | 2019-10-12 11:06 | NUR ---
UPON RECEIVING REPORT PT NOTED NOT TO HAVE BLOOD PRESSURE AND TACHYCARDIC W/HEART RATE IN THE 120S. UPON INITIAL ASSESSMENT BILATERAL AC IV'S NOTED TO BE INFILTRATED AND UNABLE TO ACCESS AND GIVE IV MEDICATIONS AT THIS TIME. AWAITING ER NURSE TO COME AND INSERT IO IV. DR. ELLIOTT AT BEDSIDE AT 0745 TO INSERT CENTRAL LINE. IO INSERTED INTO RIGHT LARSON BY ER STAFF. IV LEVOPHED, VASO, AND EPI INFUSING INTO IO AT THIS TIME. RIGHT IJ TRIPLE LUMEN CVC INSERTED BY DR. ELLIOTT AT BEDSIDE. IV INFUSIONS SWITCHED FROM IO TO CVC AFTER VERBAL OK TO USE FROM DR. JONES. UPHOLSTERER HELPER AT BEDSIDE TO INSERT A-LINE. THIS NURSE REMAINS UNABLE TO OBTAIN BP. SPOUSE MARY CORONADO NOTIFIED. TELEPHONE CONSENT FOR DNR OBTAINED AT 0815. UPHOLSTERER HELPER UNABLE TO INSERT A= Addendum: 10/12/19 at 1120 by CHRIS FOFANA RN RN UPHOLSTERER HELPER UNABLE TO INSERT A-LINE. PT REMAINS TACHYCARDIC W/HEARTRATE IN 110S W/NO SUCCESS ON OBTAINING BLOOD PRESSURE. DR. ELLIOTT NOTIFIED W/NO NEW ORDERS AT THIS TIME. AT 1010 PT NOTED TO BE BRADYCARDIC W/HEART RATE DROPPING INTO LOWER 30'S. AT 10:18 PT NOTED TO BE AYSTOLE ON TELEMONITOR. UPON AUSCULTATION AND PALPATION NO PULSE NOTED. ROMIE MASON AT BEDSIDE V/O TO NOTIFY ER DOC TO COME AND PRONOUNCE. ER DOC AT BEDSIDE 1020 TO PRONOUNCE TIME OF . MARY CORONADO NOTIFIED AND SUPPLIER QUALITY SPECIALIST NOTIFIED. POST MORTEM CARE COMPLETED AND BODY TRANSFERRED TO [facility] BY SECURITY W/BELONGINGS AT SIDE.
== END 2019-10-12 11:18 | disposition expired | DRG 208 ==
LOC: EDH 22:25 → EDHIP 09-26 00:18 → OBSVTOIN 09-26 00:18 → 4CH 09-29 00:30 → 2CV 10-04 21:27 → 2AH 10-07 12:08 → 2CV 10-12 06:24
PROVIDERS: ADMIT Internal Medicine Critical Care Medicine; ATTEND Internal Medicine Critical Care Medicine
PROC: 5A09557 Assistance with Respiratory Ventilation, Greater than 96 Consecutive Hours, Continuous Positive Airway Pressure (ICD-10-PCS; 2019-09-27)
PROC: 30233N1 Transfusion of Nonautologous Red Blood Cells into Peripheral Vein, Percutaneous Approach (ICD-10-PCS; 2019-09-29)
PROC: 05HY33Z Insertion of Infusion Device into Upper Vein, Percutaneous Approach (ICD-10-PCS; principal; 2019-10-12)
PROC: B543ZZA Ultrasonography of Right Jugular Veins, Guidance (ICD-10-PCS; 2019-10-12)
PROC: 5A1935Z Respiratory Ventilation, Less than 24 Consecutive Hours (ICD-10-PCS; 2019-10-12)
PROC: 0BH17EZ Insertion of Endotracheal Airway into Trachea, Via Natural or Artificial Opening (ICD-10-PCS; 2019-10-12)
DX: U07.1 COVID-19 (principal); J12.89 Other viral pneumonia; J96.01 Acute respiratory failure with hypoxia; N39.0 Urinary tract infection, site not specified; Z68.42 Body mass index [BMI] 45.0-49.9, adult; A08.4 Viral intestinal infection, unspecified; E11.9 Type 2 diabetes mellitus without complications; E78.5 Hyperlipidemia, unspecified; E66.01 Morbid (severe) obesity due to excess calories; E11.65 Type 2 diabetes mellitus with hyperglycemia; F41.9 Anxiety disorder, unspecified; G47.33 Obstructive sleep apnea (adult) (pediatric); G89.29 Other chronic pain; I10 Essential (primary) hypertension; Z66 Do not resuscitate; Z79.82 Long term (current) use of aspirin; Z79.84 Long term (current) use of oral hypoglycemic drugs; Z79.899 Other long term (current) drug therapy; Z86.74 Personal history of sudden cardiac arrest; Z91.040 Latex allergy status; K57.90 Diverticulosis of intestine, part unspecified, without perforation or abscess without bleeding
CPT/HCPCS: 31500; 36415; 36430; 36600; 71045; 80048; 80053; 80076; 81001; 82435; 82550; 82728; 82803; 82947; 82948; 83036; 83605; 83615; 83690; 83735; 83874; 83880; 84100; 84132; 84145; 84295; 84484; 85018; 85025; 85027; 85378; 85384; 85610; 85730; 86140; 86900; 86901; 86927; 87040; 87077; 87088; 87186; 87486; 87581; 87633; 87798; 87804; 87880; 90714; 92950; 93005; 94002; 94660; 99291; A4344; A6250; G0378; J0171; J0456; J1100; J1650; J1815; J1940; J2060; J2250; J2405; J2543; J2920; J3010; J3486; J3490; J7030; J7040; J7050; J7120; J8540; U0003